=== PATIENT | female | born 1960 | race Caucasian/White ===

== ENCOUNTER 2019-11-10 16:06 | Outpatient (CLI) | payer OTHER, SELFPAY ==
--- NOTE | 2019-11-10 | ECG_ITS ---
Measurements Intervals [place] Rate: 84 P: 64 WV: 164 QRS: 16 QRSD: 95 T: 49 QT: 364 QTc: 431 Interpretive Statements SINUS RHYTHM NORMAL ECG Electronically Signed On 11-10-2019 18:57:01 DECISION SUPPORT MANAGER by Lambert Covington D.O.
== END 2019-11-10 16:07 | disposition home or self-care (01) ==
LOC: ANHIMG 16:08
PROVIDERS: PCP Family Medicine; Visit Provider Family Medicine
DX: I49.9 Cardiac arrhythmia, unspecified (principal)
CPT/HCPCS: 93005

== ENCOUNTER → 2019-11-19 09:35 | Outpatient (CLI) | payer OTHER, SELFPAY ==
--- NOTE | ~2019-11-19 | XR_ITS ---
EXAMINATION: XR lumbar spine 6V w bending DATE: 11/19/2019 10:38 INDICATION: Low back pain. TECHNIQUE: Standing anteroposterior, lateral in neutral, flexion and extension, and bilateral oblique views of the lumbar spine, and cone-down lateral view of the lumbosacral junction were obtained. COMPARISON: CT abdomen dated 11/03/2009 FINDINGS: Chronic spondylolysis with bilateral lucent pars defects at L5. 5 mm anterolisthesis of L5 on S1 valerio ins unchanged with flexion or extension. Vertebral body heights are normal. Mild disc height loss at L3-L4, L4-L5 and L5-S1. Moderate to severe facet osteoarthritis in the lower lumbar spine. Mild osteo arthritis at the bilateral sacral iliac joints. Cholecystectomy clips in the right upper quadrant. IMPRESSION: 1. Mild to moderate lower lumbar spondylosis. 2. Chronic L5 spondylolysis with bilateral pars interarticularis defects and 5 mm anterolisthesis wit h respect to S1 which is unchanged with flexion and extension. 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 ING UNIT OPERATOR CRIMPING IMPRESSION: 1. Mild to moderate lower lumbar spondylosis. 2. Chronic L5 spondylolysis with bilateral pars interarticularis defects and 5 mm anterolisthesis with respect to S1 which is unchanged with flexion and exten ana paula.
== END ==
PROVIDERS: PCP Nurse Practitioner Family; Visit Provider Nurse Practitioner Family
DX: M47.896 Other spondylosis, lumbar region (principal)
CPT/HCPCS: 72114

== ENCOUNTER → 2019-11-27 07:53 | Outpatient (CLI) | payer OTHER, SELFPAY ==
--- NOTE | ~2019-11-27 | US_ITS ---
EXAMINATION: US right upper quadrant EXAM DATE: 11/27/2019 08:19 INDICATION: Cirrhosis, follow-up. TECHNIQUE: Multiple grayscale and Doppler images of the abdomen right upper quadrant were obtained (b y a technologist who performed the scan) and subsequently reviewed. Comparison is made to prior exami nation from 05/06/2015. FINDINGS: The pancreatic head and body are normal in appearance. The pancreatic tail is not visualized. Heter ogeneous liver echogenicity with nodular contour consistent with cirrhosis. There are no focal liver lesions identified. There is no evidence of intrahepatic biliary duct dilation. Portal venous gus w was seen in the hepatopedal, normal direction and has normal Doppler waveform. No right-sided hydr onephrosis. Common bile duct measures 3 mm, which is normal. The gallbladder fossa is unremarkable. IMPRESSION: 1. Cirrhosis. Reviewed, dictated and finalized at location B. CTOR OF PHYSICIAN PRACTICES IMPRESSION: 1. Cirrhosis.
== END ==
DX: K74.69 Other cirrhosis of liver (principal)
CPT/HCPCS: 76705

== ENCOUNTER 2019-12-07 16:01 | Outpatient (CLI) | payer OTHER, SELFPAY ==
[2019-12-07 17:02] LABS: Blood Urea Nitrogen 13 mg/dL (7-17); Calcium 9.9 mg/dL (8.4-10.2); Carbon Dioxide 29 mmol/L (22-30); Chloride 98 mmol/L (98-107); Estimated Glomerular Filt Rate > 60; Glucose 124 mg/dL (65-105); Potassium 4.3 mmol/L (3.4-5.0); Sodium 135 mmol/L (137-145)
== END 2019-12-07 16:02 | disposition home or self-care (01) ==
PROVIDERS: Anesthesiology; Visit Provider Obstetrics & Gynecology
DX: N95.0 Postmenopausal bleeding (principal); T50.2X5A Adverse effect of carbonic-anhydrase inhibitors, benzothiadiazides and other diuretics, initial encounter
CPT/HCPCS: 36415; 80048; 86850; 86900; 86901

== ENCOUNTER 2019-12-10 21:06 | Inpatient (IN) | payer OTHER, SELFPAY ==
[2019-11-30 15:23] VITALS: BMI 50.3
--- NOTE | ~2019-12-10 | XR_ITS ---
EXAMINATION: XR chest 1V portable DATE: 12/12/2019 05:44 INDICATION: Respiratory failure. TECHNIQUE: A single frontal view of the chest was obtained. COMPARISON: Chest single view 12/11/2019 FINDINGS: There are airspace opacities in the lower lung zones. There are airspace opacities in left perihilar region. There is a small left pleural effusion. No pneumothorax. Cardiomegaly is noted. A r ight internal jugular central venous catheter is seen with tip in the superior vena cava. Surgical cl ips in the right upper quadrant are likely from cholecystectomy. IMPRESSION: 1. Stable airspace opacities in the lower lung zones and left perihilar region, consistent with atele ctasis versus pneumonia. 2. Stable small left pleural effusion. 3. Cardiomegaly. 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 ETISER OPERATOR IMPRESSION: 1. Stable airspace opacities in the lower lung zones and left perihilar region, consistent with atelectasis versus pneumonia. 2. Stable small left pleural effusion. 3. Cardiomegaly.
--- NOTE | ~2019-12-10 | XR_ITS ---
EXAMINATION: XR chest ET placement, XR abdomen NG/feed tube insert DATE: 12/10/2019 20:55 INDICATION: Endotracheal tube placement. Orogastric tube placement. TECHNIQUE: Line 1. Portable AP supine view of the chest was obtained for assessment of endotracheal tube placement. 2. Portable AP supine view of the abdomen was obtained to assess for nasogastric tube placement. COMPARISON: None FINDINGS: Chest: Endotracheal tube tip 2.5 cm above the guillermo. Right internal jugular central venous catheter with di stal tip at the caudal superior vena cava. Small lung volumes. Bilateral perihilar airspace opacities and more bandlike opacities in the bilateral lower lung zones. Likely small left pleural effusion. N o pneumothorax. The cardiomediastinal silhouette remains within normal limits for AP technique. Visua lized bones and soft tissues are unremarkable. Abdomen: Nasogastric tube tip in proximal side port in the body of the stomach. Cholecystectomy clips in right upper quadrant. Midline skin roya at the lower abdomen. No dilated gas-filled bowel to suggest ob struction. Moderate lower lumbar spondylosis. IMPRESSION: 1. Lines and tubes in expected positions. 2. Small lung volumes with bilateral airspace disease which could represent atelectasis and/or pneumo josue. 3. Likely small left pleural effusion. 4. Postoperative changes in the abdomen with normal bowel gas pattern. 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 ESIASTICAL WORKER IMPRESSION: 1. Lines and tubes in expected positions. 2. Small lung volumes with bilateral airspace disease which could represent ate lectasis and/or pneumonia. 3. Likely small left pleural effusion. 4. Postoperative changes in the abdomen with normal bowel gas pattern.
--- NOTE | ~2019-12-10 | XR_ITS ---
EXAMINATION: XR chest 1V portable DATE: 12/13/2019 05:50 INDICATION: Respiratory failure. TECHNIQUE: A single frontal view of the chest was obtained. COMPARISON: Chest single view 12/12/2019 FINDINGS: There are airspace opacities in the perihilar regions and lower lung zones. There is a smal l left pleural effusion. No pneumothorax. Cardiomegaly is noted. There is a right internal jugular po rt with tip in superior vena cava. IMPRESSION: 1. Airspace opacities in the perihilar regions and lower lung zones with worsening on the right, cons istent with atelectasis versus pneumonia. 2. Stable small left pleural effusion. 3. Cardiomegaly. 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 PING TECHNICIAN IMPRESSION: 1. Airspace opacities in the perihilar regions and lower lung zones with worsen ing on the right, consistent with atelectasis versus pneumonia. 2. Stable small left pleural effusion. 3. Cardiomegaly.
--- NOTE | ~2019-12-10 | XR_ITS ---
EXAMINATION: XR chest 1V portable DATE: 12/11/2019 05:47 INDICATION: Respiratory failure. TECHNIQUE: A single frontal view of the chest was obtained. COMPARISON: Chest single view 12/10/2019 FINDINGS: There is mild atelectasis in the lower lung zones. There is a small left pleural effusion. No pneumothorax. Cardiomegaly is noted. A right internal jugular central venous catheter is seen with tip in the superior vena cava. The nasogastric tube tip is in the stomach. The endotracheal tube tip is 2.7 cm above the guillermo. IMPRESSION: 1. Mild atelectasis in the lower lung zones. 2. Small left pleural effusion. 3. Cardiomegaly. 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 ONOMY DEPARTMENT CHAIR
--- NOTE | 2019-12-10 08:55 | WPDANESEPPF ---
Anes - Initial Pre Proc Eval Procedure: Operation Date: 12/10/19 13:00 Proposed Procedures p Robotic Assisted Total Vaginal Hysterectomy, Bilateral Salpingectomy - Mariano James MD Date/Time: 12/10/19 08:55 Surgeon: Mariano James MD Pre Op Diagnosis: Persistent post menopausal bleeding Patient Data Age: 59 Gender: F Height: 1.6 m Weight: 128.82 kg Allergies Allergy/AdvReac Type Severity Reaction Status Date / Time Penicillins Allergy Intermediate Rash Verified 11/30/19 15:15 Sulfa (Sulfonamide Allergy Unknown Dermatitis, Verified 11/30/19 15:15 Antibiotics) RASH TANGERINES Allergy Severe THROAT Uncoded 11/30/19 15:15 SWELLING Home Medications Medication Instructions Recorded Confirmed Type azathioprine 50 mg PO DAILY 09/08/19 11/30/19 History furosemide 20 mg PO BID 09/08/19 11/30/19 History nadolol 20 mg PO HS 09/08/19 11/30/19 History pantoprazole 40 mg PO DAILY 09/08/19 11/30/19 History spironolactone 150 mg PO DAILY 09/08/19 11/30/19 History cholecalciferol (vitamin D3) 50 2,000 unit PO DAILY 11/10/19 11/30/19 History mcg (2,000 unit) tablet fluticasone propionate 50 1 spray NASAL BID #15.8 ml 11/10/19 11/30/19 Rx mcg/actuation nasal spray,suspension cyclobenzaprine 10 mg PO PRN PRN 11/30/19 11/30/19 History hydrocodone-acetaminophen 1 tablet PO PRN PRN 11/30/19 11/30/19 History lactulose 15 ml PO HS 11/30/19 11/30/19 History tramadol 50 mg PO PRN PRN 11/30/19 11/30/19 History ECG: Date of Service: 11/10/19 Procedure(s): CA 12 lead EKG Accession Number(s): [id number] cc: ~ Measurements Intervals [place] Rate: 84 P: 64 IN: 164 QRS: 16 QRSD: 95 T: 49 QT: 364 QTc: 431 Interpretive Statements SINUS RHYTHM NORMAL ECG Electronically Signed On 11-10-2019 18:57:01 INVESTIGATIONS MANAGER by Lambert Covington D.O. 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 Morbid obesity with BMI of 50.0-59.9, adult Obstructive sleep apnea Osteopenia after menopause Portal hypertension Surgical History Surgical History (Updated 11/10/19 @ 13:26 by Radha Mcneal MA) H/O dilation and curettage (~2019) History of breast lump/mass excision Hx of cholecystectomy Social History Social History Smoking status: Never smoker Alcohol intake: current Gender identity (if verbalized by the patient): Female Anes - Eval Final PreProcedure Day of Procedure 12/10/19 08:55 Patient weight: morbidly obese Heart: regular rate and rhythm Lungs: clear to auscultation and normal air movement Airway: Mallampati scale class II Neurological: alert and oriented Last oral intake: >/= 8 hours ASA classification: IV Emergent: no Anesthetic plan: proceed Anesthesia type and monitoring: general ETT Informed Consent: The patient's anesthetic plan and its attendant risks and benefits were discussed with the patient/family/POA. Questions were solicited and answers provided to the satisfaction of the patient/family/POA.
[2019-12-10] MEDS: LACTATED RINGERS 1,000 ML 30 ML IV CONT (11:15)
[2019-12-10 11:37] VITALS: BP 131/96; PULSE 85; RESP 18; TEMP 36.6; O2SAT 98
--- NOTE | 2019-12-10 12:34 | PM.IMHP ---
H&P: HPI History of Present Illness Chief complaint: Persistent post menopausal bleeding Narrative: 59 y/o who continues to have irregular vaginal bleeding. She had a D&C in September which demonstrated atrophic endometrium. Her Pap was negative. She is asking for definitive management. 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 Past MONUMENT STONECUTTER: No history of abnormal pap or of STI. Meds Home Medications and Allergies Home Medications Medication Instructions Recorded Confirmed Type azathioprine 50 mg PO DAILY 09/08/19 12/10/19 History furosemide 20 mg PO BID 09/08/19 12/10/19 History nadolol 20 mg PO HS 09/08/19 12/10/19 History pantoprazole 40 mg PO DAILY 09/08/19 11/30/19 History spironolactone 150 mg PO DAILY 09/08/19 12/10/19 History cholecalciferol (vitamin D3) 50 2,000 unit PO DAILY 11/10/19 12/10/19 History mcg (2,000 unit) tablet fluticasone propionate 50 1 spray NASAL BID #15.8 ml 11/10/19 12/10/19 Rx mcg/actuation nasal spray,suspension cyclobenzaprine 10 mg PO PRN PRN 11/30/19 12/10/19 History hydrocodone-acetaminophen 1 tablet PO PRN PRN 11/30/19 12/10/19 History lactulose 15 ml PO HS 11/30/19 12/10/19 History tramadol 50 mg PO PRN PRN 11/30/19 12/10/19 History Allergies Allergy/AdvReac Type Severity Reaction Status Date / Time Penicillins Allergy Intermediate Rash Verified 12/10/19 11:32 Sulfa (Sulfonamide Allergy Unknown Dermatitis, Verified 12/10/19 11:32 Antibiotics) RASH TANGERINES Allergy Severe THROAT Uncoded 12/10/19 11:32 SWELLING Vital Signs Vital Signs - 24 hr 12/10/19 11:37 Temperature 36.6 C Pulse Rate 85 Respiratory Rate 18 Blood Pressure 131/96 H Pulse Oximetry 98 Exam Const: Orientation/consciousness: patient oriented x3 Other: Well-developed, well-nourished female in no acute distress. Neck: Thyroid: thyroid normal Lymphatic: no lymphadenopathy noted (in neck, axilla or inguinal nodes) Resp: Effort & Inspection: normal respiratory effort Auscultation: clear to auscultation bilaterally Cardio: Rate: regular rate Rhythm: regular rhythm Heart sounds: S1 normal heart sound present and S2 normal heart sound present GI: Other: ABD: Soft, nontender, nondistended. No guarding or rebound tenderness. No hepatosplenomegaly. : General: Yes no CVA tenderness Other: External genitalia: normal female hair distribution, without lesion. Urethral meatus: no lesion, non prolapsed. Bladder: no mass, nontender Vagina: atrophic, without lesion or discharge. No cystocele or rectocele. Cervix: no lesion or discharge. Uterus: small, anteverted, freely mobile, nontender Adnexa: no mass or tenderness. Anus/perineum: no lesions, nontender Back/Spine/Pelvis: Back: no CVA tenderness Skin: General skin exam: normal color and no rashes or lesions noted Neuro: General: patient oriented x3 Extrem: Other: Extremities: nontender with no edema Psych: Mental Status: mental status grossly normal Affect: normal affect Assessment and Plan Assessment a
[2019-12-10] MEDS: CLINDAMYCIN 900 MG/NS 50 ML 900 MG/50 ML PIGGYBACK 50 MG IVPB ×2 (13:06→16:32)
[2019-12-10] MEDS: IBUPROFEN IV 800 MG/200 ML 800 MG/200 ML BAG 400 MG IVPB (13:20)
--- NOTE | 2019-12-10 15:01 | PM.PROC ---
Procedure Note - Detailed Date of procedure: 12/10/19 Pre-op diagnosis: Persistent post menopausal bleeding Post-op diagnosis: same Procedure performed: Robotic assisted TVHBSO Description of procedure: The patient was taken to the operating room where general endotracheal anesthesia was administered. She was prepared and draped in the usual sterile fashion in the dorsal lithotomy position. The bladder was drained with Moreno catheter. The cervix was visualized and the anterior lip was grasped using a single-tooth tenaculum. The cervix was gently dilated using Hegar dilators. The ORION 2 uterine manipulator was then placed and the tenaculum was removed. Gloves were changed and attention was turned to the abdomen. A supraumbilical skin incision was made with the scalpel. The Veress needle was advanced and pneumoperitoneum was administered using carbon dioxide gas. The bladeless trocar was then advanced. Intraperitoneal placement was confirmed using the laparoscope. Lateral ports and an entry level assistant manager port were all placed using bladeless trocars under direct laparoscopic visualization. She was placed in Trendelenburg position and the patient cart was docked. I assumed the console. The ureters were visualized bilaterally. The round ligament on the right was divided. The infundibulopelvic ligament was divided. The broad ligament was divided, skeletonizing the uterine artery on the right. The bladder was reflected away. The left side was similarly dissected. Colpotomy was performed circumferentially. The specimen was removed and passed off to be sent to pathology. The vaginal cuff was reapproximated using 0 Vicryl in interrupted [id number] fashion. The pelvis was irrigated copiously using warmed normal saline. Rigorous hemostasis was assured. HemaDerm was applied to the vaginal cuff. The pedicles were inspected once again. The ports were then withdrawn and the gas was allowed to escape. The skin incisions were reapproximated using 4 0 Monocryl in interrupted subcuticular fashion. Dermaflex was applied externally. Sponge, lap, needle and instrument counts were correct. The patient was awakened and taken to the recovery room in stable condition. I was present and scrubbed through the entire procedure. Implants: None Anesthesia: JAIDEN Surgeon: Mariano James MD Estimated blood loss (mL): 50 Drains: Yes (moreno) Packing: No Pathology: yes (Uterus, cervix, bilateral ovaries and tubes) Complications: None Condition: stable Disposition: PACU Findings: Liver appears nodular with some omental adhesions to the anterior abdominal wall near the liver. The uterus, tubes and ovaries, anterior and posterior cul-de-sac, bilateral uterosacral and round ligaments were all unremarkable.
--- NOTE | 2019-12-10 15:10 | PM.DS ---
DS: Diagnosis Admitting Diagnosis Admitting Diagnosis: Postmenopausal bleeding DS: Summary Time Spent with Patient Time attestation: Total time spent providing and/or coordinating discharge services: DS: Data Data Completed and Pending Pending studies at discharge: Pending at discharge 12/10/19 14:37 Surgical [PTH] Routine Discharge Plan Discharge Patient Disposition: Home, Self-Care Discharge Instructions: Call or return if temperature above 100.4? F, increased abdominal pain, increased vaginal bleeding or any new problems. Stand Alone Forms: General Discharge Instructions Follow-up/Referrals: Mariano James MD [Physician] - (2 weeks) Discharge Medications: No Action cholecalciferol (vitamin D3) [Vitamin D3] 2,000 unit tablet 2,000 unit PO DAILY RF: 0 fluticasone propionate [Flonase Allergy Relief] 50 mcg/actuation spray,suspension 1 spray NASAL BID Qty: 15.8 RF: 0 lactulose 10 gram/15 mL solution 15 ml PO HS RF: 0 hydrocodone-acetaminophen 5-325 mg tablet 1 tablet PO PRN PRN (Reason: Pain) RF: 0 tramadol 50 mg tablet 50 mg PO PRN PRN (Reason: pain) RF: 0 cyclobenzaprine 10 mg tablet 10 mg PO PRN PRN (Reason: Muscle Spasm) RF: 0 azathioprine 50 mg tablet 50 mg PO DAILY RF: 0 nadolol 20 mg tablet 20 mg PO HS RF: 0 pantoprazole 40 mg tablet,delayed release (DR/EC) 40 mg PO DAILY RF: 0 furosemide 20 mg tablet 20 mg PO BID RF: 0 spironolactone 50 mg tablet 150 mg PO DAILY RF: 0 Primary Care Provider: Zoran Nix Attending physician on admission: Mariano James
[2019-12-10 16:10] LABS: Base Excess ABG -10.5 mEq/l (+/-2.0); Carboxyhemoglobin 0.2 % THb (0-2.0); Fractional Inspired Oxygen 21 %; HCO3 ABG 18.2 mEq/l (22.0-26.0); Methemoglobin ABG 0.8 %THb (0-1.5); Oxygen Content ABG 11.7 %vol (16.0-22.0); Oxygen Saturation ABG 98.2 % (95.0-100.0); Oxyhemoglobin 95.9 % THb (90.0-100.0); PCO2 ABG 55.6 mmHg (35.0-45.0); PO2 ABG 150.5 mmHg (80.0-100.0); Reduced Hemoglobin 3.1 %THb (0-5.0); Total Hemoglobin 8.4 g/dL (12.0-18.0)
[2019-12-10 16:12] LABS: Device SIMPLE MASK; Site Drawn ARTLINE; pH ABG 7.132 (7.350-7.450)
[2019-12-10 16:13] LABS: Hematocrit 23.1 % (37.0-47.0); Hemoglobin 7.4 g/dL (12.0-15.0)
[2019-12-10 17:19] LABS: Hematocrit 21.9 % (37.0-47.0); Hemoglobin 7.3 g/dL (12.0-15.0)
[2019-12-10 17:27] LABS: Alveolar/Arterial O2 Gradient 446.2 mmHg; Base Excess ABG -11.3 mEq/l (+/-2.0); Carboxyhemoglobin 0.2 % THb (0-2.0); Fractional Inspired Oxygen 100 %; HCO3 ABG 15.5 mEq/l (22.0-26.0); Methemoglobin ABG 0.5 %THb (0-1.5); Oxygen Content ABG 11.7 %vol (16.0-22.0); Oxygen Saturation ABG 99.3 % (95.0-100.0); Oxyhemoglobin 97.2 % THb (90.0-100.0); PCO2 ABG 39.1 mmHg (35.0-45.0); PO2 ABG 227.7 mmHg (80.0-100.0); PO2 FiO2 Ratio Arterial Blood 2.28 %; Reduced Hemoglobin 2.1 %THb (0-5.0); Total Hemoglobin 8.1 g/dL (12.0-18.0)
[2019-12-10 17:29] LABS: Site Drawn ARTLINE; pH ABG 7.217 (7.350-7.450)
[2019-12-10 17:30] LABS: Device IN OR/PER ANESTHESIA
[2019-12-10 17:31] LABS: INR 2.9; Prothrombin Time 29.5 Seconds (11.1-14.7)
[2019-12-10 17:33] LABS: Partial Thromboplastin Time 71.6 SECONDS (22.3-36.8)
--- NOTE | 2019-12-10 18:42 | SUR.OPER ---
ADDITIONAL COUNTS AT END OF SECOND PROCEDURE DONE BY TIM WHYTE AND JOSE TAN RN, ALL COUNTS COMPLETE AND CORRECT:432
[2019-12-10 19:08] LABS: Base Excess ABG -10.5 mEq/l (+/-2.0); Carboxyhemoglobin 0.3 % THb (0-2.0); Fractional Inspired Oxygen 100 %; HCO3 ABG 16.8 mEq/l (22.0-26.0); Methemoglobin ABG 0.5 %THb (0-1.5); Oxygen Content ABG 17.4 %vol (16.0-22.0); Oxygen Saturation ABG 99.7 % (95.0-100.0); Oxyhemoglobin 97.8 % THb (90.0-100.0); PCO2 ABG 42.7 mmHg (35.0-45.0); PO2 ABG 347.3 mmHg (80.0-100.0); PO2 FiO2 Ratio Arterial Blood 3.47 %; Reduced Hemoglobin 1.4 %THb (0-5.0)
[2019-12-10 19:10] LABS: pH ABG 7.213 (7.350-7.450)
[2019-12-10 19:11] LABS: Site Drawn ARTLINE
[2019-12-10 19:12] LABS: Device IN OR/PER ANESTHESIA
--- NOTE | 2019-12-10 19:17 | SUR.OPER ---
final count for second procedure: all sponges, sharps and instruments correct per MANASA MILES RN AND JOSE TAN RN
--- NOTE | 2019-12-10 19:28 | SUR.OPER ---
EBL:[id number], URINE:120CC
--- NOTE | 2019-12-10 19:29 | SUR.OPER ---
URINE CORRECTION:155CC
--- NOTE | 2019-12-10 19:29 | SUR.OPER ---
GIVEN DURING SURGERY: 4 UNITS FFP, 6 UNITS PACKED CELLS
--- NOTE | 2019-12-10 19:33 | PM.PROC ---
Procedure Note - Detailed Date of procedure: 12/21/19 Pre-op diagnosis: Persistent post menopausal bleeding This is an intraoperative consultation note by Dr. Sana Parsons. Preop as above Post-op diagnosis: other ( intraoperative bleeding starting has the robotic/ laparoscopic trocars were removed.) Procedure performed: Exploratory laparotomy with control of hemorrhage Description of procedure: I received a call as the on-call general surgeon to help in room 10. Dr. James explained that he had just completed a robotic total abdominal hysterectomy with bilateral salpingo-oopherectomy. He states that there was no obvious bleeding during or at the end of the case. A then as they began removing the laparoscopic trocars upon removal of the upper midline laparoscopic trocar there was some bubbling of some dark blood. 5 minutes later as they were continuing to complete closure the patient began dropping her blood pressure and increasing her heart rate. Therefore, prior to me entering the room Dr. James had made a vertical midline incision from the pubic bone up to 3 cm below the umbilicus. They began a laparotomy and had searched for bleeding. He had inspected both of the pedicles for the ovarian vessels prior to my arrival. They also had somewhat inspected the vaginal cuff and there was not obvious bleeding. They had seen dark blood coming down both gutters into the pelvis. Because the patient could not tolerate it they stated that they did not have her in super steep Trendelenburg during the procedure. Upon scrubbing in I carefully inspected the incision and helped them move the bowels back and forth and we looked in the pelvis again. We scooped out several areas of blood clot. I made an initial of palpation of the right upper quadrant and there was adhesions of the omentum to the underside of abdominal wall that I took down with Bovie cautery so that I could get my hand up by the Rt. lobe of the liver. The liver was small and nodular but there were no defects or palpable lacerations in the liver. I did the same thing on the left side and we brought some blood clots down but I could not get my hand up lateral to the stomach we could see the anterior surface of the stomach and it appeared to be okay. Since we were not finding anything that would explain the bleeding and we are having difficulty keeping the bowels out of the way we decided to enlarge the incision. I helped to make the incision larger by continuing the incision around the left side of the umbilicus and up through the port site that was transverse just above the umbilicus and then another 3 cm above that. We opened the fascia the length of this. Following this I was able to get a retractor in we suctioned all the blood from along the right lateral gutter and along the liver and I placed 1 lap pad up lateral to the liver and left that in place. We then moved to the left side and I went all the way up to the adhesions and placed another lap pad on top of the colon and the omentum in the left upper quadrant. Then we placed the patient in Trendelenburg position and re-examine the pelvis. Please see Dr. James's a dictation regarding the pelvis. It appeared that patient was oozing from both pedicles so several sutures were placed mainly on the right pedicle which stopped bleeding. There was not arterial bleeding that we could see. We also had some bleeding from the right side of the vaginal cuff and he suture ligated this. When we were satisfied with no bleeding at the vaginal cuff a piece of Gelfoam was placed on the vaginal cuff deep in the pelvis. We then carefully reinspected the right ovarian pedicle and did not see any significant bleeding. We then left the patient sit for 2 minutes and observed her vitals.. While we had been working the Anesthesiologist had placed a left jugular central line and given the patient 4 units of pack red blood cells and 4 units of FFP. Her INR which
--- NOTE | 2019-12-10 20:01 | P.OP_ITS ---
Procedure Note - Detailed Date of procedure: 12/10/19 Pre-op diagnosis: Persistent post menopausal bleeding Postoperative bleeding Post-op diagnosis: same Procedure performed: Diagnostic laparoscopy Conversion to laparotomy Description of procedure: After the patient's hysterectomy, she was extubated. She then became hypotensive. I was called emergently back to the operating room at this time to evaluate her. We decided to go ahead with diagnostic laparoscopy in an attempt to find a reason for her hypotension. She was prepared and draped in usual sterile fashion in the dorsal supine position. The supraumbilical skin incision was reopened and the 5 mm bladeless trocar was advanced under direct laparoscopic visualization. Pneumoperitoneum was administered. A second 5 mm port was placed in the right lateral port site, again with a bladeless trocar under direct laparoscopic visualization. Hemoperitoneum was noted and adequate visualization was not able to be obtained. She received a second dose of antibiotic, and we proceeded to open laparotomy. A vertical skin incision was made with the scalpel and carried through to the underlying layer of the fascia. The fascia was incised in the midline. The incision was extended superiorly and inferiorly. The peritoneum was tented and entered sharply. This incision was extended superiorly inferiorly. The self- retaining retractor was placed and the bowel was packed away in an effort to visualize the vaginal cuff and pedicles. Hemoperitoneum was evacuated. Bleeding seemed to be coming from higher in the abdomen, so general surgery was consulted. Oozing at the vaginal cuff and at the ovarian pedicles was addressed with interrupted figure of eight sutures of 0-Vicryl. Gelfoam was placed at the vaginal cuff and at the left ovarian pedicle for additional hemostasis. The likely main bleeder was identified as a large vein in the anterior abdominal wall adjacent to the supraumbilical port site. Please see Dr. Parsons's separate note for further details. She received 6 units of PRBC and 6 units of FFP. After the vertical skin incision was closed, the patient remained intubated and was taken to the ICU. Implants: None Anesthesia: GETA Surgeon: Mariano James MD Estimated blood loss (mL): 3,000 Drains: Yes (moreno) Packing: No Pathology: none sent Complications: No immediate complications Condition: stable Disposition: ICU Findings: Hemoperitoneum. Source of bleeding appeared to be the large anterior abdominal wall vein adjacent to the supraumbilical port site. Small oozing from many peritoneal surfaces, including at the vaginal cuff and pedicle sites bilaterally.
[2019-12-10 20:08] VITALS: PULSE 91; O2SAT 100
--- NOTE | 2019-12-10 20:13 | WPDANESCVCPN ---
Anes - Cent Venous Cath Note Consent: It was necessary to proceed with central venous catheter insertion as an important element of the patient's clinical management given emergent patient conditions, temporal constraints may have precluded informed consent. Time-Out: A pre-procedural Time-Out was completed immediately before starting the procedure and confirmed: Patient Identification, Site, Procedure, Patient Position and the Availability of Requisite Equipment. Procedure Note Clinical Indications: hypovolemic shock Patient position: trendelenburg Central venous catheter insertion site: right internal jugular CVC method of insertion: surface landmarks Hand hygiene/Aseptic technique: Hand hygiene procedures were performed. Aseptic technique was maintained throughout the procedure. Sterile barrier precautions: Maximal sterile barrier precautions, including use of a cap, mask, sterile gown, sterile gloves and a sterile full body drape. Site prep: chlorhexidine Skin anesthesia: placed under general anesthesia Latvian: 7 Lumen: 3 Length (cm): 15 cm Depth of insertion (cm): 15 Closure/Dressing: suture, biopatch and tegaderm Complications: None immediately noted/suspected. Chest X Ray: Ordered by icu to follow Procedure comments: placed by DFW without difficulty in operating room. transduced cvp waveform. 1730 [id number].
[2019-12-10 20:27] VITALS: PULSE 93
[2019-12-10 21:08] LABS: Hematocrit 25.8 % (37.0-47.0); Hemoglobin 8.7 g/dL (12.0-15.0); Immature Platelet Fraction Pct 3.4 % (0.9-11.2); Mean Corpuscular HGB Conc 33.7 g/dl (32-36); Mean Corpuscular Hemoglobin 29.9 pg (26-34); Mean Corpuscular Volume 88.7 fl (80-100); Mean Platelet Volume 10.6 fl (7.4-10.4); Platelet Count Result 40 k/mm3 (150-375); Red Blood Count 2.91 M/mm3 (4.2-5.4); Red Cell Distribution Width 15.2 % (11.5-14.5)
[2019-12-10 21:16] LABS: INR 1.3
[2019-12-10 21:17] LABS: Partial Thromboplastin Time 30.4 SECONDS (22.3-36.8)
[2019-12-10 21:19] LABS: Blood Urea Nitrogen 12 mg/dL (7-17); Calcium 8.6 mg/dL (8.4-10.2); Carbon Dioxide 25 mmol/L (22-30); Chloride 101 mmol/L (98-107); Estimated CRCL calculation 77 ml/min; Estimated Glomerular Filt Rate > 60; Glucose 179 mg/dL (65-105); Magnesium 1.3 mg/dL (1.6-2.3); Potassium 4.2 mmol/L (3.4-5.0); Sodium 138 mmol/L (137-145)
[2019-12-10 21:21] LABS: Lactic Acid 4.4 mmol/L (0.7-2.1)
[2019-12-10 21:24] VITALS: TEMP 35.6
[2019-12-10 21:36] LABS: Alveolar/Arterial O2 Gradient 127.8 mmHg; Arterial Blood Gas Ventilator rate 18 /MIN; Carboxyhemoglobin 0.2 % THb (0-2.0); Device VENTILATOR; Fractional Inspired Oxygen 40 %; HCO3 ABG 22.4 mEq/l (22.0-26.0); Methemoglobin ABG 0.5 %THb (0-1.5); Oxygen Content ABG 13.4 %vol (16.0-22.0); Oxygen Saturation ABG 98.6 % (95.0-100.0); Oxyhemoglobin 96.5 % THb (90.0-100.0); PCO2 ABG 32.2 mmHg (35.0-45.0); PO2 ABG 120.4 mmHg (80.0-100.0); PO2 FiO2 Ratio Arterial Blood 3.01 %; Reduced Hemoglobin 2.8 %THb (0-5.0); Site Drawn ARTLINE; Total Hemoglobin 9.7 g/dL (12.0-18.0)
[2019-12-10 21:37] LABS: Arterial Blood Gas PEEP 5 cmH2O; Arterial Blood Gas Tidal Volume 400 ml; Arterial Blood Gas Vent Mode CMV
[2019-12-10] MEDS: AZTREONAM 1 GM in DEXTROSE 5% IN WATER 50 ML IVPB (21:54)
[2019-12-10 22:00] VITALS: BP 102/55; PULSE 94; RESP 18; TEMP 35.8; O2SAT 94
--- NOTE | 2019-12-10 22:19 | PM.IMCN ---
Assessment and Plan Assessment and plan (1) Respiratory acidosis: Code(s): E87.2 - Acidosis Status: Acute Assessment and Plan: Patient is intubated and placed on a ventilator. Drafting Technician to manage ventilator settings. Her ABGs have improved. The patient is more awake now. The patient also had lactic acidosis as well. Patient could have been in hypovolemic shock. Could also be early sepsis. (2) Postoperative hemorrhage: Status: Acute Assessment and Plan: Management per Dr. goetz. According to his note the patient had 6 units of packed red blood cells and 6 units of FFP. I am going to monitor her H&H closely every 6 hours. The patient is in the intensive care unit. Transfuse as needed. Vasopressors as needed. Latest H&H is [phone]. (3) Advanced cirrhosis of liver: Code(s): K74.60 - Unspecified cirrhosis of liver Status: Acute Assessment and Plan: Patient's lactulose, Aldactone and Lasix are on hold at this time. (4) Obstructive sleep apnea: Code(s): G47.33 - Obstructive sleep apnea (adult) (pediatric) Status: Chronic Assessment and Plan: Patient is currently vented bit may need a CPAP when she comes off the vent. (5) HTN (hypertension), malignant: Code(s): I10 - Essential (primary) hypertension Status: Acute Assessment and Plan: Home medications are on hold at this time due to patient's low blood pressure from earlier. (6) H/O: hysterectomy: Code(s): Z90.710 - Acquired absence of both cervix and uterus Status: Acute Assessment and Plan: Postop care per Dr. Goetz. (7) Low magnesium level: Code(s): R79.0 - Abnormal level of blood mineral Status: Acute Assessment and Plan: Replace as needed. The magnesium was replaced. HPI Data of Consult Consult date: 12/10/19 Requesting Physician: Mariano Goetz MD Primary Care Provider: Zoran Nix MD Consult Narrative Narrative: Hetal Curry is a 59 year old female who has a history of postmenopausal bleeding. The patient had a D&C previously on 09/16/[address] Goetz. It looks like she had a hysteroscope and had a removal of endometrial mass. Patient continued to have persistent postmenopausal bleeding. The patient has a history of of non alcoholic cirrhosis of the liver. Today the patient was taken for robotic assisted TVH BSO per Dr. Goetz. Patient developed some intraoperative bleeding and had a exploratory laparotomy with control of hemorrhage. See Dr. Parsons's notes. The patient was apparently oozing from both pedicles and several sutures were placed. The patient received a central line in the operating room and the patient was given 6 units of packed red blood cells and 6 units of FFP. Her INR was 2.9. Once the patient was stabilized she was moved to the intensive care unit. The patient was placed on the ventilator and on vasopressors. Patient was awake and had her eyes open when she entered ICU. I was asked to consult on the case for the hospitalist group. Date of service 12/10/2019 Review of Systems Review of Systems: Narrative: Unable to obtain information from the patient as she is intubated and placed on ventilator. The family was giving history and the patient brought her medications with her to the hospital. ROS unobtainable: unobtainable due to endotracheal tube Constitutional: Constitutional: Reports as per HPI and Reports no additional constitutional complaints Eyes: Eyes: Reports as per HPI and Reports no additional eye complaints ENT: Reports system reviewed and no additional complaints, except as documented and Reports Normal hearing present Cardiovascular: Cardiovascular: Reports no additional cardiovascular complaints Respiratory: Respiratory: Reports no additional respiratory complaints and Reports no additional respiratory complaints Gastrointestinal: Gastrointestinal: Reports as per HPI and Repor
[2019-12-10 22:59] VITALS: PULSE 96; O2SAT 100
[2019-12-10] MEDS: SODIUM CHLORIDE 0.9% IV 1,000 ML 75 ML IV CONT (23:01)
[2019-12-10] MEDS: MAGNESIUM SULF 2 GM/WATER 50ML 2 GM/50 ML BAG IVPB (23:07)
[2019-12-10] MEDS: PHYTONADIONE INJ 10 MG/ML AMP IM (23:10)
[2019-12-10 23:18] LABS: Hematocrit 25.9 % (37.0-47.0); Hemoglobin 8.9 g/dL (12.0-15.0)
[2019-12-11] VITALS (26 sets, daily range): BP systolic 81–115; BP diastolic 46–76; PULSE 75–111; RESP 14–20; TEMP 36.2–37.8; O2SAT 89–100; BMI 51.5; BMI 54.3
[2019-12-11 00:11] LABS: Glucose Point of Care 158 (65-105)
[2019-12-11] MEDS: metroNIDAZOLE 500 MG/ISO 100ML 500 MG/100 ML BAG 100 MG IVPB ×5 (00:51→23:45)
[2019-12-11] MEDS: NOREPINEPHRINE 8 MG/D5W 250 ML 8 MG/250 ML BAG 9.4 MG IV CONT (01:08)
--- NOTE | 2019-12-11 01:22 | PC.NURSE ---
This patient, Hetal Curry, was admitted to Intensive Care Unit-6. Patient/family oriented to hospital policies and general routines including ID bracelet, bed and alarms, visiting hours, pain management, procedures, bathroom and other care routines, personal items, smoking policy, room service/diet, and visiting hours. Valuables list has been completed. Information on how to activate the Rapid Response Team has been discussed. Patient/Family are encouraged to report perceived risks to care and to ask questions if they do not understand what they are told or what they should do.
[2019-12-11 04:37] LABS: Hematocrit 26.2 % (37.0-47.0); Hemoglobin 9.3 g/dL (12.0-15.0); Immature Platelet Fraction Pct 5.2 % (0.9-11.2); Mean Corpuscular HGB Conc 35.5 g/dl (32-36); Mean Corpuscular Hemoglobin 30.4 pg (26-34); Mean Corpuscular Volume 85.6 fl (80-100); Mean Platelet Volume 11.3 fl (7.4-10.4); Platelet Count Result 56 k/mm3 (150-375); Red Blood Count 3.06 M/mm3 (4.2-5.4); Red Cell Distribution Width 15.8 % (11.5-14.5); White Blood Count 11.3 K/mm3 (4.5-10.0)
[2019-12-11 04:51] LABS: INR 1.3; Prothrombin Time 15.6 Seconds (11.1-14.7)
[2019-12-11 04:52] LABS: Partial Thromboplastin Time 28.1 SECONDS (22.3-36.8)
[2019-12-11 04:53] LABS: Ammonia < 9 umol/L (9-30); Lactic Acid 1.9 mmol/L (0.7-2.1)
[2019-12-11 04:54] LABS: Alanine Aminotransferase 108 U/L (4-35); Albumin Level 2.1 g/dL (3.5-5.1); Alkaline Phosphatase 63 U/L (38-126); Aspartate Amino Transferase 229 U/L (14-36); Bilirubin,Total 3.7 mg/dL (0.2-1.3); Blood Urea Nitrogen 17 mg/dL (7-17); Calcium 8.5 mg/dL (8.4-10.2); Carbon Dioxide 26 mmol/L (22-30); Chloride 105 mmol/L (98-107); Estimated CRCL calculation 71 ml/min; Estimated Glomerular Filt Rate 57; Glucose 146 mg/dL (65-105); Magnesium 1.7 mg/dL (1.6-2.3); Phosphorus 3.2 mg/dL (2.5-4.5); Potassium 3.9 mmol/L (3.4-5.0); Sodium 137 mmol/L (137-145)
[2019-12-11 05:53] LABS: Alveolar/Arterial O2 Gradient 93.2 mmHg; Base Excess ABG 1.2 mEq/l (+/-2.0); Carboxyhemoglobin 0.3 % THb (0-2.0); Fractional Inspired Oxygen 30 %; HCO3 ABG 24.9 mEq/l (22.0-26.0); Methemoglobin ABG 0.4 %THb (0-1.5); Oxygen Content ABG 13.6 %vol (16.0-22.0); Oxygen Saturation ABG 96.2 % (95.0-100.0); Oxyhemoglobin 94.3 % THb (90.0-100.0); PO2 ABG 78.4 mmHg (80.0-100.0); PO2 FiO2 Ratio Arterial Blood 2.61 %; Total Hemoglobin 10.2 g/dL (12.0-18.0); pH ABG 7.458 (7.350-7.450)
[2019-12-11 05:55] LABS: Device VENTILATOR; Modified Allen's Test Pass; Site Drawn RIGHT RADIAL
[2019-12-11 05:56] LABS: Arterial Blood Gas PEEP 5 cmH2O; Arterial Blood Gas Tidal Volume 360 ml; Arterial Blood Gas Vent Mode CMV; Arterial Blood Gas Ventilator rate 18 /MIN
[2019-12-11] MEDS: AZTREONAM 1 GM in DEXTROSE 5% IN WATER 50 ML IVPB ×3 (06:44→22:33)
--- NOTE | 2019-12-11 07:19 | WPDANESACPN ---
Arterial Cath Proc Note Consent: I placed an emergent a-line in the OR [id number] while patient was being treated and evaluated for post-op hypotension. Time-Out: A pre-procedural Time-Out was completed immediately before starting the procedure and confirmed: Patient Identification, Site, Procedure, Patient Position and the Availability of Requisite Equipment. Procedure Note Patient position: supine Insertion site: left radial Method of insertion: surface landmarks Concrete Stone Finisher prep: sterile gloves, mask and hat Site prep: chlorahexadine Gauge: 20 gauge Length (cm): 12 cm Closure/Dressing: antimicrobial disc and tegaderm Complications: None immediately noted/suspected.
--- NOTE | 2019-12-11 07:25 | WPDCNINT ---
Assessment and Plan Assessment and plan (1) Acute respiratory failure following trauma and surgery: Code(s): J95.821 - Acute postprocedural respiratory failure Status: Acute Assessment and Plan: Acute Respiratory failure secondary to anesthesia, hypotension and Hemorrhage Continue full mechanical ventilation support to prevent hypoxemia/hypercarbia and end organ damage. ABG and PCXR reviewed Low tidal volume ventilation strategy to prevent volutrauma tidal volume decreased to 360 Will attempt SBT today and extubate if successful. Bronchodilators (2) Shock: Code(s): R57.9 - Shock, unspecified Status: Acute Assessment and Plan: multifactorial shock from hemorrhagic volume loss, anesthesia and caution with sepsis patient on empiric broad-spectrum antibiotic with aztreonam and Flagyl patient is 4-5 L positive sense will be cautious with IV fluids as patient has cirrhosis and is third-spacing start albumin 25% on low-dose Levophed will continue to titrate and wean if possible. Transfuse blood products as needed (3) Postoperative hemorrhage: Status: Acute Assessment and Plan: patient had 6 units of packed red blood cells and 6 units of FFP. hemoglobin appears to be stable this morning . Continue to monitor closely. Transfuse as needed. (4) DIC (disseminated intravascular coagulation): Code(s): D65 - Disseminated intravascular coagulation [defibrination syndrome] Status: Acute Assessment and Plan: patient was given 6 units of FFP and later 10 mg of vitamin K in the ICU INR acceptable this morning at 1.3. Monitor closely transfuse as needed. Check fibrinogen level (5) S/P exploratory laparotomy: Code(s): Z98.890 - Other specified postprocedural states Status: Acute Assessment and Plan: pain control and surgical wound care (6) H/O: hysterectomy: Code(s): Z90.710 - Acquired absence of both cervix and uterus Status: Acute Assessment and Plan: Postop care per Dr. James. (7) Advanced cirrhosis of liver: Code(s): K74.60 - Unspecified cirrhosis of liver Status: Acute Assessment and Plan: Patient's lactulose, Aldactone and Lasix are on hold at this time. ammonia was checked and level was normal vitamin K given (8) Low magnesium level: Code(s): R79.0 - Abnormal level of blood mineral Status: Acute Assessment and Plan: Replace as needed. The magnesium was replaced. (9) GERD (gastroesophageal reflux disease): Code(s): K21.9 - Gastro-esophageal reflux disease without esophagitis Status: Acute Assessment and Plan: IV PPI Additional Plan DVT prophylaxis - SCDs Stress ulcer prophylaxis - PPI Nutrition - NPO Code Status - Full Code patient's updated at bedside. Total Critical Care Time - 35 minutes Due to a high probability of clinically significant, life threatening deterioration, the patient required my highest level of preparedness to intervene emergently and I personally spent this critical care time directly and personally managing the patient. This critical care time included obtaining a history; examining the patient; pulse oximetry; ordering and review of studies; arranging urgent treatment with development of a management plan; evaluation of patient's response to treatment; frequent reassessment; and discussions with other providers. It was exclusive of separately billable procedures and treating other patients and teaching time. Please see Assessment and Plan section and the rest of the note for further information on patient assessment and treatment Clinical Application Specialist Consult Note Consult date: 12/11/19 Time Seen: 07:25 HPI: Hetal Curry is a 59 year old female with PMH cirrhosis, autoimmune hepatitis and gastric varices was evaluated for postmenopausal bleeding. The patient had a D&C previously on 09/16/[address] Rodríguez
[2019-12-11] MEDS: PANTOPRAZOLE SODIUM IV 40 MG VIAL IV PUSH (08:18)
[2019-12-11 08:43] LABS: Fibrinogen 188 mg/dl (215-510)
[2019-12-11 09:01] LABS: Alveolar/Arterial O2 Gradient 98.2 mmHg; Base Excess ABG 0.7 mEq/l (+/-2.0); Fractional Inspired Oxygen 30 %; HCO3 ABG 24.4 mEq/l (22.0-26.0); Oxygen Content ABG 12.5 %vol (16.0-22.0); Oxygen Saturation ABG 95.6 % (95.0-100.0); Oxyhemoglobin 92.8 % THb (90.0-100.0); PCO2 ABG 35.6 mmHg (35.0-45.0); PO2 ABG 73.9 mmHg (80.0-100.0); PO2 FiO2 Ratio Arterial Blood 2.46 %; Total Hemoglobin 9.5 g/dL (12.0-18.0); pH ABG 7.454 (7.350-7.450)
[2019-12-11 09:02] LABS: Arterial Blood Gas PEEP 5 cmH2O; Arterial Blood Gas Pressure Support 5 cmH2O; Arterial Blood Gas Vent Mode SPONTANEOUS; Device VENTILATOR; Site Drawn ARTLINE
--- NOTE | 2019-12-11 09:31 | WPDANESPN ---
Anes - Prog Note Post-Op Date/Time: 12/11/19 09:31 Cardiovascular status: other (pt remains on pressor support) Respiratory status: other (pt remains intubated. currently having weaning trial. pt awake,nod in response. indicates feeling well.) Airway patency: other (intubated) Mental status: other Vital Signs: Last Vital Signs Temp 100.0 F H 12/11/19 07:44 Pulse 108 H 12/11/19 07:55 Resp 19 12/11/19 07:44 BP 112/66 12/11/19 07:44 Pulse Ox 97 12/11/19 07:55 I/O: Intake & Output 12/10/19 12/11/19 12/11/19 23:59 07:59 15:59 Intake Total 3891 777 Output Total 425 Balance 3891 352 Laboratory Tests 12/11/19 04:21 12/11/19 04:21 12/07/19 12/07/19 12/10/19 16:11 16:11 16:00 WBC RBC Hgb 7.4 L Hct 23.1 L MCV MCH MCHC RDW Plt Count MPV % Immature Plt Fraction PT INR APTT Fibrinogen Puncture Site ABG pH ABG pCO2 ABG pO2 ABG PO2/FiO2 Ratio ABG HCO3 ABG O2 Saturation ABG O2 Content ABG Base Excess A-a Gradient Oxyhemoglobin Carboxyhemoglobin Methemoglobin Reduced Hemoglobin Total Hemoglobin O2 Delivery Device O2 Liters/Min Minute Volume Vent Rate Vent Mode FiO2 Tidal Volume PEEP Peak Inspir Pressure Pressure Support Sodium Potassium Chloride Carbon Dioxide BUN Creatinine Estim Creat Clear Calc Estimated GFR Glucose POC Capillary Glucose Lactic Acid Calcium Phosphorus Magnesium Total Bilirubin AST ALT Alkaline Phosphatase Ammonia Total Protein Albumin Blood Type TNP TNP Antibody Screen TNP TNP Enhanced Crossmatch See Detail See Detail 12/10/19 12/10/19 12/10/19 16:00 17:10 17:10 WBC RBC Hgb 7.3 L Hct 21.9 L MCV MCH MCHC RDW Plt Count MPV % Immature Plt Fraction PT 29.5 H INR 2.9 APTT 71.6 H Fibrinogen Puncture Site Artline ABG pH 7.132 L* ABG pCO2 55.6 H ABG pO2 150.5 H ABG PO2/FiO2 Ratio 0.00 ABG HCO3 18.2 L ABG O2 Saturation 98.2 ABG O2 Content 11.7 L ABG Base Excess -10.5 A-a Gradient Not Reportable Oxyhemoglobin 95.9 Carboxyhemoglobin 0.2 Methemoglobin 0.8 Reduced Hemoglobin 3.1 Total Hemoglobin 8.4 L O2 Delivery Device Simple mask O2 Liters/Min 10.0 Minute Volume Vent Rate Vent Mode FiO2 21 Tidal Volume PEEP Peak Inspir Pressure Pressure Support Sodium Potassium Chloride Carbon Dioxide BUN Creatinine Estim Creat Clear Calc Estimated GFR Glucose POC Capillary Glucose Lactic Acid Calcium Phosphorus Magnesium Total Bilirubin AST ALT Alkaline Phosphatase Ammonia Total Protein Albumin Blood Type Antibody Screen Enhanced Crossmatch 12/10/19 12/10/19 12/10/19 17:21 18:00 18:59 WBC RBC Hgb Hct MCV MCH MCHC RDW Plt Count MPV % Immature Plt Fraction PT INR APTT Fibrinogen Puncture Site Artline Artline ABG pH 7.217 L* 7.213 L* ABG pCO2 39.1 42.7 ABG pO2 227.7 H 347.3 H ABG PO2/FiO2 Ratio 2.28 3.47 ABG HCO3 15.5 L 16.8 L ABG O2 Saturation 99.3 99.7 ABG O2 Content 11.7 L 17.4 ABG Base Excess -11.3 -10.5 A-a Gradient 446.2 323.0 Oxyhemoglobin 97.2 97.8 Carboxyhemoglobin 0.2 0.3 Methemoglobin 0.5 0.5 Reduced Hemoglobin 2.1 1.4 Total Hemoglobin 8.1 L 12.0 O2 Delivery Device In or/per anesthesia In or/per anesthesia O2 Liters/Min 0.0 Not Reportable Minute Volume Vent Rate Vent Mode FiO2 100 100 Tidal Volume PEEP Peak Inspir Pressure Pressure Support Sodium Potassium Chloride Carbon Dioxide BUN Creatinine Estim Creat Clear Calc Estimated GFR Glucose POC Capillary Glucos
[2019-12-11 11:13] LABS: Hematocrit 23.9 % (37.0-47.0); Hemoglobin 8.4 g/dL (12.0-15.0)
[2019-12-11 12:02] LABS: Glucose Point of Care 143 (65-105)
[2019-12-11] MEDS: ALBUMIN HUMAN 25% 25 GM/100 ML 100 ML IVPB ×3 (12:08→23:46)
[2019-12-11] MEDS: SODIUM CHLORIDE 0.9% IV 1,000 ML 75 ML IV CONT (12:08)
--- NOTE | 2019-12-11 12:45 | PM.GYNPNOP ---
BALLISTICS TESTER - A/P Postoperative Procedures: Procedures Operation Date: 12/10/19 13:00 Actual Procedures Side Surgeon p Robotic Assisted Total Vaginal Hysterectomy, Bilateral Salpingo-Oopherectomy Bilateral MD tyrese Avalos Exploratory Laparotomy, CONTROL OF BLEEDING Mariano James MD A: POD#1, s/p robotic-assisted TVHBSO with subsequent laparotomy / evacuation of hemoperitoneum for acute postop bleed. Now extubated, still on pressors. Hgb 8.4. P: Ice chips now, may try clear liquids this evening. Time Spent With Patient Time with patient: less than 15 minutes BALLISTICS TESTER- PN:Subj Post-Op Subjective Date/time seen: 12/11/19 12:45 Interval history: Has been extubated. Resting comfortably in the bed, asking for something to eat. Pain under good control. Medical care managed by corrections unit supervisor staff. Exam Narrative: Exam Narrative: AVSS ABD soft, nontender. Incision is clean, dry, intact. BALLISTICS TESTER - PN: Obj Data Vital Signs Vital Signs: Vital Signs - 24 hr 12/10/19 20:08 12/10/19 20:27 12/10/19 21:24 Temperature 35.6 C L Pulse Rate 91 93 Respiratory Rate Blood Pressure Pulse Oximetry 100 12/10/19 22:00 12/10/19 22:59 12/11/19 00:00 Temperature 35.8 C L 36.2 C L Pulse Rate 94 96 92 Respiratory Rate 18 18 Blood Pressure 102/55 L 89/46 L Pulse Oximetry 94 100 94 12/11/19 02:00 12/11/19 02:02 12/11/19 04:00 Temperature 36.2 C L 37.2 C Pulse Rate 104 H 105 H 103 H Respiratory Rate 17 20 Blood Pressure 105/75 112/66 Pulse Oximetry 98 99 97 12/11/19 05:05 12/11/19 05:12 12/11/19 06:00 Temperature 37.2 C Pulse Rate 108 H 105 H Respiratory Rate Blood Pressure 100/57 L Pulse Oximetry 98 12/11/19 06:05 12/11/19 07:44 12/11/19 07:55 Temperature 37.0 C 37.8 C H Pulse Rate 103 H 108 H 108 H Respiratory Rate 18 19 Blood Pressure 112/66 112/66 Pulse Oximetry 97 96 97 12/11/19 08:00 12/11/19 09:56 12/11/19 10:00 Temperature Pulse Rate 107 H 107 H 105 H Respiratory Rate 19 Blood Pressure 97/69 L 85/55 L Pulse Oximetry 97 96 12/11/19 10:04 12/11/19 11:00 12/11/19 12:00 Temperature Pulse Rate 104 H Respiratory Rate Blood Pressure 81/61 L Pulse Oximetry 97 89 L 95 12/11/19 12:06 12/11/19 14:00 12/11/19 14:06 Temperature 37.4 C Pulse Rate 106 H 75 97 Respiratory Rate 17 19 Blood Pressure 104/64 111/61 108/64 Pulse Oximetry 95 95 Intake/Output Intake/Output: Intake & Output 12/08/19 12/09/19 12/10/19 12/11/19 23:59 23:59 23:59 23:59 Intake Total 3891 1601 Output Total 425 Balance 3891 1176 Meds/Results Medications: Active Medications Generic Name Dose Route Start Last Admin Trade Name Freq PRN Reason Stop Dose Admin Hydrocodone Bitart/Acetaminophen 1 tab 12/11/19 13:19 [place] 5-325 Mg PO Q4H PRN Pain Rated 4-6 Albuterol 2.5 mg 12/10/19 21:13 Albuterol Sulf Neb 2.5mg/0.5ml INHALATION Q6HRT PRN Wheezing Dextrose 12.5 gm 12/10/19 21:13 Dextrose 50% Syringe IV PUSH PRN PRN Hypoglycemia Protocol Fentanyl Citrate 50 mcg 12/11/19 13:19 12/11/19 13:26 Sublimaze IV PUSH 25 mcg Q2H PRN Administration Pain Rated 7-10 Glucagon 1 mg 12/10/19 21:13 Glucagon For Inj IM PRN PRN Hypoglycemia Protocol Glucose 15 gm 12/10/19 21:13 Glutose 15 PO PRN PRN Hypoglycemia Protocol Aztreonam 1 gm/ Dextrose 50 mls @ 100 mls/hr 12/10/19 22:00 12/11/19 15:11 IVPB Infused Q8HR JON Infusion Metronidazole 500 mg in 100 mls @ 100 mls/hr 12/11/19 00:00 12/11/19 13:10 Flagyl 500 Mg/Iso Soln 100 Ml IVPB Infused Q6HR JON Infusion Dextrose 1,000 mls @ 100 mls/hr 12/10/19 21:13 Dextrose 5% 1,000 Ml IVPB PRN PRN Hypoglycemia Protocol Sodium Chloride 1,000 mls @ 75 mls/hr 12/10/19 22:15 12/11/19 12:08 Normal Saline Iv IV CONT 75 mls/hr .[id number] JON Administration Norepine
--- NOTE | 2019-12-11 15:24 | PM.IMPN ---
Progress Note: A&P Assessment and Plan (1) Respiratory acidosis: Code(s): E87.2 - Acidosis Status: Acute Assessment and Plan: Acute respiratory failure with hypercapnia, patient was intubated and placed on a ventilator. Able to be extubated later this a.m.. The patient also had lactic acidosis which resolved with fluid challenge. Patient could have been in hypovolemic shock. Could also be early sepsis so covered with antibiotics also after culture. (2) Postoperative hemorrhage: Status: Acute Assessment and Plan: Management per Dr. goetz. According to his note the patient had 6 units of packed red blood cells and 6 units of FFP. H&H closely every 6 hours. The patient is in the intensive care unit. Transfuse as needed. Vasopressors as needed. 9.3 this am (3) Advanced cirrhosis of liver: Code(s): K74.60 - Unspecified cirrhosis of liver Status: Acute Assessment and Plan: Patient's lactulose, Aldactone and Lasix are on hold at this time. (4) Obstructive sleep apnea: Code(s): G47.33 - Obstructive sleep apnea (adult) (pediatric) Status: Chronic Assessment and Plan: Patient is currently vented bit may need a CPAP when she comes off the vent. (5) HTN (hypertension), malignant: Code(s): I10 - Essential (primary) hypertension Status: Acute Assessment and Plan: Home medications are on hold at this time due to patient's low blood pressure from earlier. (6) H/O: hysterectomy: Code(s): Z90.710 - Acquired absence of both cervix and uterus Status: Acute Assessment and Plan: Postop care per Dr. Goetz. Subjective Date/time seen: 12/11/19 15:24 Interval history: Date of visit 12/11. 59-year-old white female with nonalcoholic cirrhosis had postop bleeding complication with total abdominal hysterectomy and bilateral salpingectomy oophorectomy. She receive 6 units of packed cells and 6 units of FFP and was stabilized 1 source of bleeding was found and cauterized. She was continue ventilation due to respiratory acidosis and initially low blood pressure treated with Levophed in the ICU. She is alert today with no complaints on the vent Exam Narrative: Exam Narrative: Blood pressure 108/64 pulse is 86 with low-dose nor epinephrine satting presently 94% on 2 L nasal cannula after extubation Lungs clear CV regular rate rhythm Abdomen is soft nontender Extremities without edema distal pulses 1+ Neuro alert pleasant cooperative no focal deficits Objective Data Vital Signs Vital Signs: Vital Signs - 24 hr 12/10/19 20:08 12/10/19 20:27 12/10/19 21:24 Temperature 35.6 C L Pulse Rate 91 93 Respiratory Rate Blood Pressure Pulse Oximetry 100 12/10/19 22:00 12/10/19 22:59 12/11/19 00:00 Temperature 35.8 C L 36.2 C L Pulse Rate 94 96 92 Respiratory Rate 18 18 Blood Pressure 102/55 L 89/46 L Pulse Oximetry 94 100 94 12/11/19 02:00 12/11/19 02:02 12/11/19 04:00 Temperature 36.2 C L 37.2 C Pulse Rate 104 H 105 H 103 H Respiratory Rate 17 20 Blood Pressure 105/75 112/66 Pulse Oximetry 98 99 97 12/11/19 05:05 12/11/19 05:12 12/11/19 06:00 Temperature 37.2 C Pulse Rate 108 H 105 H Respiratory Rate Blood Pressure 100/57 L Pulse Oximetry 98 12/11/19 06:05 12/11/19 07:44 12/11/19 07:55 Temperature 37.0 C 37.8 C H Pulse Rate 103 H 108 H 108 H Respiratory Rate 18 19 Blood Pressure 112/66 112/66 Pulse Oximetry 97 96 97 12/11/19 08:00 12/11/19 09:56 12/11/19 10:00 Temperature Pulse Rate 107 H 107 H 105 H Respiratory Rate 19 Blood Pressure 97/69 L 85/55 L Pulse Oximetry 97 96 12/11/19 10:04 12/11/19 11:00 12/11/19 12:00 Temperature Pulse Rate 104 H Respiratory Rate Blood Pressure 81/61 L Pulse Oximetry 97 89 L 95 12/11/19 12:06 12/11/19 14:00 12/11/19 14:06 Temperature 37.4 C Pulse Rate 106 H 75 97 Respiratory Rate 17 19 Blood Pressure 104/
[2019-12-11 16:50] LABS: Hematocrit 22.1 % (37.0-47.0); Hemoglobin 7.7 g/dL (12.0-15.0)
[2019-12-11 18:08] LABS: Glucose Point of Care 192 (65-105)
--- NOTE | 2019-12-11 18:15 | PC.NURSE ---
Extubated at [address] James to bedside, reviewed case with patient. Advanced diet to clear liquids. Patient tolerated dinner.
[2019-12-11 23:45] LABS: Glucose Point of Care 179 (65-105)
[2019-12-12] VITALS (26 sets, daily range): BP systolic 93–119; BP diastolic 57–73; PULSE 82–105; RESP 12–22; TEMP 36.5–37.1; O2SAT 92–100
[2019-12-12] MEDS: SODIUM CHLORIDE 0.9% IV 1,000 ML 75 ML IV CONT (01:23)
[2019-12-12] MEDS: metroNIDAZOLE 500 MG/ISO 100ML 500 MG/100 ML BAG 100 MG IVPB ×4 (05:17→23:48)
[2019-12-12 05:19] LABS: Immature Platelet Fraction Pct 5.3 % (0.9-11.2); Mean Corpuscular HGB Conc 33.5 g/dl (32-36); Mean Corpuscular Hemoglobin 30.5 pg (26-34); Mean Platelet Volume 10.8 fl (7.4-10.4); Platelet Count Result 33 k/mm3 (150-375); Red Cell Distribution Width 16.1 % (11.5-14.5); White Blood Count 3.7 K/mm3 (4.5-10.0)
[2019-12-12] MEDS: ALBUMIN HUMAN 25% 25 GM/100 ML 100 ML IVPB (05:19)
[2019-12-12 05:20] LABS: Alanine Aminotransferase 72 U/L (4-35); Albumin Level 2.5 g/dL (3.5-5.1); Alkaline Phosphatase 39 U/L (38-126); Aspartate Amino Transferase 115 U/L (14-36); Bilirubin,Total 0.9 mg/dL (0.2-1.3); Blood Urea Nitrogen 16 mg/dL (7-17); Calcium 8.1 mg/dL (8.4-10.2); Carbon Dioxide 27 mmol/L (22-30); Chloride 105 mmol/L (98-107); Estimated CRCL calculation 104 ml/min; Estimated Glomerular Filt Rate > 60; Glucose 141 mg/dL (65-105); INR 1.5; Magnesium 1.7 mg/dL (1.6-2.3); Phosphorus 2.6 mg/dL (2.5-4.5); Potassium 4.1 mmol/L (3.4-5.0); Prothrombin Time 17.6 Seconds (11.1-14.7); Sodium 135 mmol/L (137-145)
[2019-12-12] MEDS: AZTREONAM 1 GM in DEXTROSE 5% IN WATER 50 ML IVPB ×3 (05:21→21:53)
[2019-12-12 05:39] LABS: Hemoglobin 6.4 g/dL (12.0-15.0)
[2019-12-12 05:40] LABS: Hematocrit 19.1 % (37.0-47.0)
--- NOTE | 2019-12-12 07:00 | WPDINTPN ---
Progress Note: A&P Assessment and Plan (1) Acute respiratory failure following trauma and surgery: Code(s): J95.821 - Acute postprocedural respiratory failure Status: Acute Assessment and Plan: Acute Respiratory failure secondary to anesthesia, hypotension and Hemorrhage extubated yesterday after a successful weaning trial continue aggressive incentive spirometry. Physical therapy evaluation and out of bed today saturating well on nasal cannula (2) Shock: Code(s): R57.9 - Shock, unspecified Status: Acute Assessment and Plan: multifactorial shock from hemorrhagic volume loss, anesthesia and caution with sepsis continue empiric broad-spectrum antibiotic with aztreonam and Flagyl patient is 4-5 L positive sense will be cautious with IV fluids as patient has cirrhosis and is third-spacing, patient was given albumin 25% Levophed weaned off will transfuse 2 more units of packed red cells today monitor (3) Postoperative hemorrhage: Status: Acute Assessment and Plan: patient had 6 units of packed red blood cells and 6 units of FFP. hemoglobin has gradually trended down to 6.4 today. no obvious signs of bleed and patient is off of Levophed suggest that this may be calibration rather than ongoing bleed. Will transfuse 2 more units of packed red cells today and continue serial monitoring of hemoglobin. (4) DIC (disseminated intravascular coagulation): Code(s): D65 - Disseminated intravascular coagulation [defibrination syndrome] Status: Acute Assessment and Plan: patient was given 6 units of FFP and later 10 mg of vitamin K in the ICU INR 1.5. Fibrinogen level is 188. Continue to monitor closely transfuse as needed. (5) S/P exploratory laparotomy: Code(s): Z98.890 - Other specified postprocedural states Status: Acute Assessment and Plan: postop day 2 s/p robotic-assisted TVHBSO with subsequent laparotomy / evacuation of hemoperitoneum for acute postop bleed. pain control and surgical wound care per OBGYN (6) H/O: hysterectomy: Code(s): Z90.710 - Acquired absence of both cervix and uterus Status: Acute Assessment and Plan: see above (7) Advanced cirrhosis of liver: Code(s): K74.60 - Unspecified cirrhosis of liver Status: Acute Assessment and Plan: Patient's lactulose, Aldactone and Lasix are on hold at this time. ammonia was checked and level was normal vitamin K given (8) Low magnesium level: Code(s): R79.0 - Abnormal level of blood mineral Status: Acute Assessment and Plan: Replace as needed. The magnesium was replaced. (9) GERD (gastroesophageal reflux disease): Code(s): K21.9 - Gastro-esophageal reflux disease without esophagitis Status: Acute Assessment and Plan: IV PPI Additional Plan DVT prophylaxis - SCDs Stress ulcer prophylaxis - PPI Nutrition - advance diet as per crop roller Code Status - Full Code Consult physical therapy and occupational therapy patient's updated at bedside. Total Critical Care Time - 30 minutes Due to a high probability of clinically significant, life threatening deterioration, the patient required my highest level of preparedness to intervene emergently and I personally spent this critical care time directly and personally managing the patient. This critical care time included obtaining a history; examining the patient; pulse oximetry; ordering and review of studies; arranging urgent treatment with development of a management plan; evaluation of patient's response to treatment; frequent reassessment; and discussions with other providers. It was exclusive of separately billable procedures and treating other patients and teaching time. Please see Assessment and Plan section and the rest of the note for further information on patient assessment and treatment Subjective Date/time seen:
[2019-12-12] MEDS: PANTOPRAZOLE SODIUM IV 40 MG VIAL IV PUSH (08:17)
[2019-12-12] MEDS: SODIUM CHLORIDE 0.9% IV 250 ML 30 ML IV CONT (09:13)
--- NOTE | 2019-12-12 09:58 | PM.GYNPNOP ---
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 P: Medical mangagement per ICU staff. Advance diet as tolerated. Time Spent With Patient Time with patient: less than 15 minutes RESIDENTIAL REAL ESTATE APPRAISER- PN:Subj Post-Op Subjective Date/time seen: 12/12/19 09:58 Interval history: Pain controlled with Fentanyl. On NC O2 2L. Off pressors. Receiving 2 units PRBC. Asking for food. Exam Narrative: Exam Narrative: AVSS ABD soft, appropriately tender. Incision c/d/i. EXT nontender RESIDENTIAL REAL ESTATE APPRAISER - PN: Obj Data Vital Signs Vital Signs: Vital Signs - 24 hr 12/11/19 10:00 12/11/19 10:04 12/11/19 11:00 Temperature Pulse Rate 105 H Respiratory Rate Blood Pressure 85/55 L Pulse Oximetry 97 89 L 12/11/19 12:00 12/11/19 12:06 12/11/19 14:00 Temperature 37.4 C Pulse Rate 104 H 106 H 75 Respiratory Rate 17 Blood Pressure 81/61 L 104/64 111/61 Pulse Oximetry 95 95 12/11/19 14:06 12/11/19 16:00 12/11/19 18:00 Temperature 37.0 C Pulse Rate 97 94 111 H Respiratory Rate 19 17 18 Blood Pressure 108/64 112/67 115/64 Pulse Oximetry 95 95 96 12/11/19 20:00 12/11/19 21:40 12/11/19 21:46 Temperature 36.8 C Pulse Rate 107 H 101 H 101 H Respiratory Rate 19 18 18 Blood Pressure 109/64 Pulse Oximetry 96 96 96 12/11/19 22:00 12/12/19 00:00 12/12/19 02:00 Temperature 37.1 C Pulse Rate 100 104 H 90 Respiratory Rate 14 21 H 12 Blood Pressure 96/64 L 103/57 L 97/60 L Pulse Oximetry 96 97 96 12/12/19 03:48 12/12/19 04:00 12/12/19 05:52 Temperature 36.9 C Pulse Rate 100 84 95 Respiratory Rate 20 16 Blood Pressure 105/60 111/64 Pulse Oximetry 96 97 12/12/19 05:53 12/12/19 07:49 12/12/19 08:00 Temperature 36.9 C Pulse Rate 92 100 96 Respiratory Rate 15 17 Blood Pressure 111/64 93/60 L 109/66 Pulse Oximetry 92 97 12/12/19 09:11 12/12/19 09:27 Temperature 36.6 C 36.6 C Pulse Rate 105 H 97 Respiratory Rate 18 18 Blood Pressure 97/63 L 107/62 Pulse Oximetry 98 100 Intake/Output Intake/Output: Intake & Output 12/09/19 12/10/19 12/11/19 12/12/19 23:59 23:59 23:59 23:59 Intake Total 3891 3744 1387 Output Total 1075 1075 Balance 3891 0161 612 Meds/Results Medications: Active Medications Generic Name Dose Route Start Last Admin Trade Name Freq PRN Reason Stop Dose Admin Hydrocodone Bitart/Acetaminophen 1 tab 12/11/19 13:19 12/12/19 05:19 [place] 5-325 Mg PO 1 tab Q4H PRN Administration Pain Rated 4-6 Albuterol 2.5 mg 12/10/19 21:13 Albuterol Sulf Neb 2.5mg/0.5ml INHALATION Q6HRT PRN Wheezing Dextrose 12.5 gm 12/10/19 21:13 Dextrose 50% Syringe IV PUSH PRN PRN Hypoglycemia Protocol Fentanyl Citrate 50 mcg 12/11/19 13:19 12/12/19 06:50 Sublimaze IV PUSH 50 mcg Q2H PRN Administration Pain Rated 7-10 Glucagon 1 mg 12/10/19 21:13 Glucagon For Inj IM PRN PRN Hypoglycemia Protocol Glucose 15 gm 12/10/19 21:13 Glutose 15 PO PRN PRN Hypoglycemia Protocol Aztreonam 1 gm/ Dextrose 50 mls @ 100 mls/hr 12/10/19 22:00 12/12/19 05:51 IVPB Infused Q8HR JON Infusion Metronidazole 500 mg in 100 mls @ 100 mls/hr 12/11/19 00:00 12/12/19 06:17 Flagyl 500 Mg/Iso Soln 100 Ml IVPB Infused Q6HR JON Infusion Dextrose 1,000 mls @ 100 mls/hr 12/10/19 21:13 Dextrose 5% 1,000 Ml IVPB PRN PRN Hypoglycemia Protocol Norepinephrine Bitartrate 8 mg in 250 mls @ 0 mls/hr 12/11/19 00:55 12/11/19 23:46 Levophed 8 Mg/D5w 250 Ml IV CONT 0 mcg/min .Q0M JON 0 mls/hr Titration Protocol 0 MCG/MIN Sodium Chloride 250 mls @ 30 mls/hr 12/12/19 05:42 12/12/19 09:
--- NOTE | 2019-12-12 13:50 | PM.IMPN ---
Progress Note: A&P Assessment and Plan (1) Respiratory acidosis: Code(s): E87.2 - Acidosis Status: Acute Assessment and Plan: Acute respiratory failure with hypercapnia, patient was intubated and placed on a ventilator. Able to be extubated 12/11.. The patient also had lactic acidosis which resolved with fluid challenge. Patient could have been in hypovolemic shock. Could also be early sepsis so covered with antibiotics also after culture. (2) Postoperative hemorrhage: Status: Acute Assessment and Plan: Management per Dr. goetz. According to his note the patient had 6 units of packed red blood cells and 6 units of FFP. H&H closely every 6 hours. Hgb at 6.4 today and will receive 2 more units of packed RBC(8 total) (3) Advanced cirrhosis of liver: Code(s): K74.60 - Unspecified cirrhosis of liver Status: Acute Assessment and Plan: Patient's lactulose, Aldactone and Lasix are on hold at this time. (4) Obstructive sleep apnea: Code(s): G47.33 - Obstructive sleep apnea (adult) (pediatric) Status: Chronic Assessment and Plan: Patient is currently vented bit may need a CPAP when she comes off the vent. (5) HTN (hypertension), malignant: Code(s): I10 - Essential (primary) hypertension Status: Acute Assessment and Plan: Home medications are on hold at this time due to patient's low blood pressure from earlier. (6) H/O: hysterectomy: Code(s): Z90.710 - Acquired absence of both cervix and uterus Status: Acute Assessment and Plan: Postop care per Dr. Goetz. Subjective Date/time seen: 12/12/19 13:50 Interval history: Date of visit . 59-year-old white female with nonalcoholic cirrhosis had postop bleeding complication with total abdominal hysterectomy and bilateral salpingectomy oophorectomy. She receive 6 units of packed cells and 6 units of FFP and was stabilized after source of bleeding was found and cauterized. She was continue ventilation due to respiratory acidosis and initially low blood pressure treated with Levophed in the ICU. She is alert today with no complaints off vent Exam Narrative: Exam Narrative: Blood pressure 120/66 pulse is 100 off nor epinephrine satting presently 94% on 2 L nasal cannula after extubation Lungs clear CV regular rate rhythm Abdomen is soft nontender Extremities without edema distal pulses 1+ Neuro alert pleasant cooperative no focal deficits Objective Data Vital Signs Vital Signs: Vital Signs - 24 hr 12/11/19 14:00 12/11/19 14:06 12/11/19 16:00 Temperature 37.0 C Pulse Rate 75 97 94 Respiratory Rate 19 17 Blood Pressure 111/61 108/64 112/67 Pulse Oximetry 95 95 12/11/19 18:00 12/11/19 20:00 12/11/19 21:40 Temperature 36.8 C Pulse Rate 111 H 107 H 101 H Respiratory Rate 18 19 18 Blood Pressure 115/64 109/64 Pulse Oximetry 96 96 96 12/11/19 21:46 12/11/19 22:00 12/12/19 00:00 Temperature 37.1 C Pulse Rate 101 H 100 104 H Respiratory Rate 18 14 21 H Blood Pressure 96/64 L 103/57 L Pulse Oximetry 96 96 97 12/12/19 02:00 12/12/19 03:48 12/12/19 04:00 Temperature 36.9 C Pulse Rate 90 100 84 Respiratory Rate 12 20 16 Blood Pressure 97/60 L 105/60 Pulse Oximetry 96 96 97 12/12/19 05:52 12/12/19 05:53 12/12/19 07:49 Temperature 36.9 C Pulse Rate 95 92 100 Respiratory Rate 15 17 Blood Pressure 111/64 111/64 93/60 L Pulse Oximetry 92 97 12/12/19 08:00 12/12/19 09:11 12/12/19 09:27 Temperature 36.6 C 36.6 C Pulse Rate 96 105 H 97 Respiratory Rate 18 18 Blood Pressure 109/66 97/63 L 107/62 Pulse Oximetry 98 100 12/12/19 10:00 12/12/19 10:27 12/12/19 10:29 Temperature 36.8 C 36.8 C Pulse Rate 100 94 94 Respiratory Rate 18 16 16 Blood Pressure 110/63 102/59 L 102/59 L Pulse Oximetry 98 98 95 12/12/19 11:27 12/12/19 12:00 12/12/19 12:02 Temperature 36.6 C 36.7 C 36.7 C Pulse Rate 95 83 90 Respiratory Rate 18
[2019-12-12 16:14] LABS: Hematocrit 26.3 % (37.0-47.0); Hemoglobin 8.6 g/dL (12.0-15.0)
[2019-12-12] MEDS: SIMETHICONE 80 MG TAB.CHEW PO (20:57)
[2019-12-12 22:03] LABS: Hematocrit 25.4 % (37.0-47.0); Hemoglobin 8.4 g/dL (12.0-15.0)
[2019-12-13] VITALS (15 sets, daily range): BP systolic 108–132; BP diastolic 63–82; PULSE 83–112; RESP 12–22; TEMP 36.7–37.2; O2SAT 90–98
[2019-12-13] MEDS: SIMETHICONE 80 MG TAB.CHEW PO ×3 (04:41→17:51)
[2019-12-13 04:43] LABS: Hematocrit 25.7 % (37.0-47.0); Hemoglobin 8.4 g/dL (12.0-15.0); Immature Platelet Fraction Pct 4.5 % (0.9-11.2); Mean Corpuscular HGB Conc 32.7 g/dl (32-36); Mean Corpuscular Hemoglobin 29.3 pg (26-34); Mean Corpuscular Volume 89.5 fl (80-100); Mean Platelet Volume 10.8 fl (7.4-10.4); Platelet Count Result 34 k/mm3 (150-375); Red Blood Count 2.87 M/mm3 (4.2-5.4); Red Cell Distribution Width 17.5 % (11.5-14.5)
[2019-12-13 04:52] LABS: INR 1.3; Prothrombin Time 15.9 Seconds (11.1-14.7)
[2019-12-13 04:55] LABS: Alanine Aminotransferase 75 U/L (4-35); Albumin Level 2.6 g/dL (3.5-5.1); Alkaline Phosphatase 51 U/L (38-126); Aspartate Amino Transferase 97 U/L (14-36); Bilirubin,Total 0.9 mg/dL (0.2-1.3); Blood Urea Nitrogen 11 mg/dL (7-17); Calcium 8.1 mg/dL (8.4-10.2); Carbon Dioxide 27 mmol/L (22-30); Chloride 100 mmol/L (98-107); Estimated CRCL calculation 120 ml/min; Estimated Glomerular Filt Rate > 60; Glucose 120 mg/dL (65-105); Magnesium 1.6 mg/dL (1.6-2.3); Phosphorus 2.2 mg/dL (2.5-4.5); Potassium 3.9 mmol/L (3.4-5.0); Sodium 135 mmol/L (137-145)
[2019-12-13] MEDS: metroNIDAZOLE 500 MG/ISO 100ML 500 MG/100 ML BAG 100 MG IVPB ×3 (05:04→20:19)
[2019-12-13] MEDS: AZTREONAM 1 GM in DEXTROSE 5% IN WATER 50 ML IVPB ×3 (05:05→22:02)
--- NOTE | 2019-12-13 07:00 | WPDINTPN ---
Progress Note: A&P Assessment and Plan (1) Acute respiratory failure following trauma and surgery: Code(s): J95.821 - Acute postprocedural respiratory failure Status: Acute Assessment and Plan: Acute Respiratory failure secondary to anesthesia, hypotension and Hemorrhage extubated 12/11 after a successful weaning trial saturating well on room air continue aggressive incentive spirometry. Physical therapy evaluation and out of bed today (2) Shock: Code(s): R57.9 - Shock, unspecified Status: Acute Assessment and Plan: multifactorial shock from hemorrhagic volume loss, anesthesia and caution with sepsis resolved and patient has been off of Levophed for more than 24 hours patient is status post transfusion of 8 units of packed red cells in total continue empiric broad-spectrum antibiotic with aztreonam and Flagyl patient is 4-5 L positive sense will be cautious with IV fluids as patient has cirrhosis and is third-spacing, patient was given albumin 25% will give Lasix IV x1 monitor (3) Postoperative hemorrhage: Status: Acute Assessment and Plan: patient had 6 units of packed red blood cells and 6 units of FFP. she received 2 units of packed red cells yesterday hemoglobin now appears to be stable with no other objective sign of bleeding. Blood pressure is stable continue to monitor hemoglobin (4) DIC (disseminated intravascular coagulation): Code(s): D65 - Disseminated intravascular coagulation [defibrination syndrome] Status: Acute Assessment and Plan: appears to have resolved. patient was given 6 units of FFP and later 10 mg of vitamin K in the ICU INR 1.3. Fibrinogen level is 188. Continue to monitor closely transfuse as needed. (5) S/P exploratory laparotomy: Code(s): Z98.890 - Other specified postprocedural states Status: Acute Assessment and Plan: postop day 2 s/p robotic-assisted TVHBSO with subsequent laparotomy / evacuation of hemoperitoneum for acute postop bleed. pain control and surgical wound care per OBGYN (6) H/O: hysterectomy: Code(s): Z90.710 - Acquired absence of both cervix and uterus Status: Acute Assessment and Plan: see above (7) Advanced cirrhosis of liver: Code(s): K74.60 - Unspecified cirrhosis of liver Status: Acute Assessment and Plan: Patient's lactulose, Aldactone and Lasix are on hold at this time. ammonia was checked and level was normal vitamin K Was given (8) Low magnesium level: Code(s): R79.0 - Abnormal level of blood mineral Status: Acute Assessment and Plan: will replace Mag today (9) GERD (gastroesophageal reflux disease): Code(s): K21.9 - Gastro-esophageal reflux disease without esophagitis Status: Acute Assessment and Plan: IV PPI Additional Plan DVT prophylaxis - SCDs Stress ulcer prophylaxis - PPI Nutrition - diet advanced to regular byr obstetrics gynecology md Code Status - Full Code Consult physical therapy and occupational therapy transfer out of ICU today Subjective Date/time seen: 12/13/19 0800 patient feels much better today. She denies any abdominal pain today. Tolerated p.o. diet last night without any issues. No evidence of bleeding or bruising anywhere. Saturating well on room air. No new complaints. Afebrile Review of Systems Constitutional: Constitutional: Reports no additional constitutional complaints Eyes: Eyes: Reports no additional eye complaints ENT: Reports system reviewed and no additional complaints, except as documented Cardiovascular: Cardiovascular: Reports no additional cardiovascular complaints Respiratory: Respiratory: Reports no additional respiratory complaints Gastrointestinal: Gastrointestinal: Reports abdominal pain Comments: when dressing is changed Genitourinary: Genitourinary: Reports no additional female genitourinary c
[2019-12-13] MEDS: PANTOPRAZOLE SODIUM IV 40 MG VIAL IV PUSH (08:46)
[2019-12-13] MEDS: FUROSEMIDE INJ 40 MG/4 ML VIAL 20 MG IV PUSH (11:42)
[2019-12-13] MEDS: MAGNESIUM SULF 2 GM/WATER 50ML 2 GM/50 ML BAG IVPB (11:42)
--- NOTE | 2019-12-13 12:02 | PM.GYNPNOP ---
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 P: Transfer out of ICU. Oral pain meds. Regular diet. Continue moreno for now for I/O management. Time Spent With Patient Time with patient: 15 - 25 minutes PAINTER SUPERVISOR- PN:Subj Post-Op Subjective Date/time seen: 12/13/19 12:02 Interval history: Pain OK. Tolerating diet. On room air. Plan to send to floor today. Exam Narrative: Exam Narrative: AVSS I/O OK ABD soft, nontender, fundus firm. Incision c/d/i. EXT nontender PAINTER SUPERVISOR - PN: Obj Data Vital Signs Vital Signs: Vital Signs - 24 hr 12/12/19 12:17 12/12/19 13:17 12/12/19 14:00 Temperature 36.7 C 36.7 C Pulse Rate 86 103 H 95 Respiratory Rate 16 16 Blood Pressure 114/67 119/66 Pulse Oximetry 98 98 12/12/19 14:08 12/12/19 14:17 12/12/19 16:00 Temperature 36.5 C Pulse Rate 98 94 83 Respiratory Rate 17 18 16 Blood Pressure 111/67 112/65 111/67 Pulse Oximetry 98 98 99 12/12/19 18:00 12/12/19 20:00 12/12/19 22:00 Temperature 36.8 C Pulse Rate 92 85 94 Respiratory Rate 16 18 17 Blood Pressure 118/73 113/63 115/68 Pulse Oximetry 99 97 97 12/12/19 22:40 12/13/19 00:00 12/13/19 02:00 Temperature 37.0 C Pulse Rate 92 85 96 Respiratory Rate 22 H 12 12 Blood Pressure 111/63 108/65 Pulse Oximetry 98 96 97 12/13/19 02:30 12/13/19 04:00 12/13/19 05:42 Temperature 36.8 C Pulse Rate 86 87 91 Respiratory Rate 19 22 H 14 Blood Pressure 112/66 Pulse Oximetry 98 95 95 12/13/19 05:56 12/13/19 06:00 12/13/19 08:00 Temperature 36.8 C Pulse Rate 90 97 99 Respiratory Rate 14 16 Blood Pressure 112/72 126/68 126/74 Pulse Oximetry 94 97 12/13/19 10:00 Temperature Pulse Rate 103 H Respiratory Rate 18 Blood Pressure 112/76 Pulse Oximetry 94 Intake/Output Intake/Output: Intake & Output 12/10/19 12/11/19 12/12/19 12/13/19 23:59 23:59 23:59 23:59 Intake Total 3891 3743 3369 840 Output Total 2795 6478 3496 Balance 3895 3859 -[id number] -[id number] Meds/Results Medications: Active Medications Generic Name Dose Route Start Last Admin Trade Name Freq PRN Reason Stop Dose Admin Hydrocodone Bitart/Acetaminophen 1 tab 12/11/19 13:19 12/12/19 17:05 [place] 5-325 Mg PO 1 tab Q4H PRN Administration Pain Rated 4-6 Albuterol 2.5 mg 12/10/19 21:13 Albuterol Sulf Neb 2.5mg/0.5ml INHALATION Q6HRT PRN Wheezing Dextrose 12.5 gm 12/10/19 21:13 Dextrose 50% Syringe IV PUSH PRN PRN Hypoglycemia Protocol Fentanyl Citrate 50 mcg 12/11/19 13:19 12/12/19 18:18 Sublimaze IV PUSH 50 mcg Q2H PRN Administration Pain Rated 7-10 Glucagon 1 mg 12/10/19 21:13 Glucagon For Inj IM PRN PRN Hypoglycemia Protocol Glucose 15 gm 12/10/19 21:13 Glutose 15 PO PRN PRN Hypoglycemia Protocol Aztreonam 1 gm/ Dextrose 50 mls @ 100 mls/hr 12/10/19 22:00 12/13/19 05:35 IVPB Infused Q8HR JON Infusion Metronidazole 500 mg in 100 mls @ 100 mls/hr 12/11/19 00:00 12/13/19 06:04 Flagyl 500 Mg/Iso Soln 100 Ml IVPB Infused Q6HR JON Infusion Dextrose 1,000 mls @ 100 mls/hr 12/10/19 21:13 Dextrose 5% 1,000 Ml IVPB PRN PRN Hypoglycemia Protocol Ipratropium [place] 0.5 mg 12/10/19 21:13 Atrovent Neb INHALATION Q6HRT PRN Wheezing Pantoprazole Sodium 40 mg 12/11/19 09:00 12/13/19 08:46 Protonix Iv IV PUSH 40 mg QAM JON Administration Simethicone 80 mg 12/12/19 20:23 12/13/19 04:41 Mylicon PO 80 mg QID PRN Administration Gas Discomfort Radiology Results: ITS Impressions Abdomen X-Ray 12/10/19 20:59 IMPRESSION: 1. Lines and tubes in expected positions.
--- NOTE | 2019-12-13 14:18 | PM.IMPN ---
Progress Note: A&P Assessment and Plan (1) Respiratory acidosis: Code(s): E87.2 - Acidosis Status: Acute Assessment and Plan: Acute respiratory failure with hypercapnia, patient was intubated and placed on a ventilator. Able to be extubated 12/11.. The patient also had lactic acidosis which resolved with fluid challenge. Patient could have been in hypovolemic shock. Could also be early sepsis so covered with antibiotics also . (2) Postoperative hemorrhage: Status: Acute Assessment and Plan: Management per Dr. goetz. the patient had 6 units of packed red blood cells and 6 units of FFP. . Hgb at 6.4 and received 2 more units of packed RBC(8 total) Hgb 8.4 today (3) Advanced cirrhosis of liver: Code(s): K74.60 - Unspecified cirrhosis of liver Status: Acute Assessment and Plan: IV lasix given today and will restart oral lasix, spironolacton, lactulose , and nadolol.(1/2 of usual dose of nadolol initially, 10 mg with her recent shock) off IV fluids and do not want her to get fluid overloaded from her hepatic cirrhosis (4) Obstructive sleep apnea: Code(s): G47.33 - Obstructive sleep apnea (adult) (pediatric) Status: Chronic Assessment and Plan: CPAP (5) HTN (hypertension), malignant: Code(s): I10 - Essential (primary) hypertension Status: Acute Assessment and Plan: restart naldolol at 10 mg and restart her diurectics.. (6) H/O: hysterectomy: Code(s): Z90.710 - Acquired absence of both cervix and uterus Status: Acute Assessment and Plan: Postop care per Dr. Goetz. Subjective Date/time seen: 12/13/19 14:18 Interval history: Date of visit 12/12. 59-year-old white female with nonalcoholic cirrhosis had postop bleeding complication with total Vaginal hysterectomy and bilateral salpingectomy oophorectomy. She received 6 units of packed cells and 6 units of FFP and was stabilized after source of bleeding was found and cauterized. She was continue ventilation due to respiratory acidosis and initially low blood pressure treated with Levophed in the ICU. She is alert today with no complaints off vent and pressors about 48 hours. 2 more units of PRBcs given . tolerating diet now Exam Narrative: Exam Narrative: Blood pressure 122/82 pulse is 100 satting presently 94% on RA Lungs clear CV regular rate rhythm, slight tachy Abdomen is soft nontender Extremities without edema distal pulses 1+ Neuro alert pleasant cooperative no focal deficits Objective Data Vital Signs Vital Signs: Vital Signs - 24 hr 12/12/19 16:00 12/12/19 18:00 12/12/19 20:00 Temperature 36.8 C Pulse Rate 83 92 85 Respiratory Rate 16 16 18 Blood Pressure 111/67 118/73 113/63 Pulse Oximetry 99 99 97 12/12/19 22:00 12/12/19 22:40 12/13/19 00:00 Temperature 37.0 C Pulse Rate 94 92 85 Respiratory Rate 17 22 H 12 Blood Pressure 115/68 111/63 Pulse Oximetry 97 98 96 12/13/19 02:00 12/13/19 02:30 12/13/19 04:00 Temperature 36.8 C Pulse Rate 96 86 87 Respiratory Rate 12 19 22 H Blood Pressure 108/65 112/66 Pulse Oximetry 97 98 95 12/13/19 05:42 12/13/19 05:56 12/13/19 06:00 Temperature Pulse Rate 91 90 97 Respiratory Rate 14 14 Blood Pressure 112/72 126/68 Pulse Oximetry 95 94 12/13/19 08:00 12/13/19 10:00 12/13/19 12:00 Temperature 36.8 C 36.7 C Pulse Rate 89 108 H 101 H Respiratory Rate 16 18 16 Blood Pressure 126/74 112/76 122/82 Pulse Oximetry 97 94 94 Intake/Output Intake/Output: Intake & Output 12/10/19 12/11/19 12/12/19 12/13/19 23:59 23:59 23:59 23:59 Intake Total 3891 4044 4813 1230 Output Total 2584 3142 5080 Balance 2508 6084 -849 -8006 Meds/Results Medications: Active Medications Generic Name Dose Route Start Last Admin Trade Name Freq PRN Reason Stop Dose Admin Hydrocodone Bitart/Acetaminophen 1 tab 12/11/19 13:19 12/13/19 12:12 [place] 5-325 Mg PO 1 tab Q
[2019-12-13] MEDS: POTASSIUM PHOS,M-BASIC-D-BASIC 20 MMOL in SODIUM CHLORIDE 0.9% IV 250 ML 62.5 MMOL IVPB (15:57)
[2019-12-13] MEDS: SODIUM CHLORIDE 0.9% IV 1,000 ML 10 ML (15:58)
--- NOTE | 2019-12-13 16:17 | PC.NURSE ---
This patient, Hetal Curry, was received from ICU on 12/13/19 at 1430. Patient/family oriented to unit policies and routines
[2019-12-13] MEDS: FUROSEMIDE 20 MG TABLET PO (17:02)
[2019-12-13] MEDS: FLUTICASONE PROPIONATE 0.05% NA SPR 16 GM BTL (*BKC) 1 SPRAY NASAL (17:02)
--- NOTE | 2019-12-13 21:55 | PC.NURSE ---
After further research, found hospitalist note to restart nadalol at half normal dose which is 10mg.
[2019-12-13] MEDS: nadoloL 10 MG TABLET PO (22:01)
[2019-12-14] VITALS (10 sets, daily range): BP systolic 105–131; BP diastolic 60–75; PULSE 85–108; RESP 11–18; TEMP 36.4–37.2; O2SAT 94–99
[2019-12-14] MEDS: metroNIDAZOLE 500 MG/ISO 100ML 500 MG/100 ML BAG 100 MG IVPB ×2 (02:17→08:15)
[2019-12-14] MEDS: AZTREONAM 1 GM in DEXTROSE 5% IN WATER 50 ML IVPB (05:44)
[2019-12-14 05:51] LABS: Hematocrit 29.1 % (37.0-47.0); Hemoglobin 9.7 g/dL (12.0-15.0); Immature Platelet Fraction Pct 6.6 % (0.9-11.2); Mean Corpuscular HGB Conc 33.3 g/dl (32-36); Mean Corpuscular Hemoglobin 30.1 pg (26-34); Mean Corpuscular Volume 90.4 fl (80-100); Mean Platelet Volume 11.3 fl (7.4-10.4); Platelet Count Result 53 k/mm3 (150-375); Red Blood Count 3.22 M/mm3 (4.2-5.4); Red Cell Distribution Width 17.1 % (11.5-14.5); White Blood Count 4.6 K/mm3 (4.5-10.0)
[2019-12-14 06:02] LABS: Alanine Aminotransferase 63 U/L (4-35); Albumin Level 2.7 g/dL (3.5-5.1); Alkaline Phosphatase 63 U/L (38-126); Aspartate Amino Transferase 54 U/L (14-36); Bilirubin,Total 1.1 mg/dL (0.2-1.3); Blood Urea Nitrogen 8 mg/dL (7-17); Calcium 7.6 mg/dL (8.4-10.2); Carbon Dioxide 32 mmol/L (22-30); Chloride 96 mmol/L (98-107); Estimated CRCL calculation 116 ml/min; Estimated Glomerular Filt Rate > 60; Glucose 112 mg/dL (65-105); Magnesium 1.5 mg/dL (1.6-2.3); Phosphorus 2.8 mg/dL (2.5-4.5); Potassium 3.5 mmol/L (3.4-5.0); Sodium 135 mmol/L (137-145)
--- NOTE | 2019-12-14 08:48 | PM.GYNPNOP ---
INDUSTRIAL ENGINEERING - A/P Postoperative Procedures: Procedures Operation Date: 12/10/19 13:00 Actual Procedures Side Surgeon p Robotic Assisted Total Vaginal Hysterectomy, Bilateral Salpingo-Oopherectomy Bilateral Mariano James MD s Exploratory Laparotomy, CONTROL OF BLEEDING Mariano James MD A: POD#4, continuing to make improvement. P: Medical management per hospitalist staff. I appreciate their input! Continue the usual postoperative care otherwise. Time Spent With Patient Time with patient: less than 15 minutes INDUSTRIAL ENGINEERING- PN:Subj Post-Op Subjective Date/time seen: 12/14/19 08:48 Interval history: Pain OK today. Took a long walk in the halls. Tolerating diet. Exam Narrative: Exam Narrative: AVSS I/O OK ABD soft, nontender. Incisions c/d/i. Ecchymosis noted along vertical incision. EXT nontender INDUSTRIAL ENGINEERING - PN: Obj Data Vital Signs Vital Signs: Vital Signs - 24 hr 12/13/19 10:00 12/13/19 12:00 12/13/19 14:45 Temperature 36.7 C 36.7 C Pulse Rate 108 H 101 H 109 H Respiratory Rate 18 16 20 Blood Pressure 112/76 122/82 114/82 Pulse Oximetry 94 94 95 12/13/19 19:00 12/13/19 22:01 12/13/19 23:00 Temperature 37.2 C 36.9 C Pulse Rate 112 H 108 H 112 H Respiratory Rate 18 17 Blood Pressure 132/81 115/64 Pulse Oximetry 93 91 12/13/19 23:30 12/14/19 02:00 12/14/19 04:20 Temperature 36.4 C L Pulse Rate 95 87 Respiratory Rate 16 11 L Blood Pressure 105/65 Pulse Oximetry 90 95 95 12/14/19 04:52 Temperature Pulse Rate 95 Respiratory Rate 18 Blood Pressure Pulse Oximetry 95 Intake/Output Intake/Output: Intake & Output 12/11/19 12/12/19 12/13/19 12/14/19 23:59 23:59 23:59 23:59 Intake Total 4466 3397 4140 532 Output Total 4294 4791 0002 1250 Balance 2669 -308 -3490 -718 Meds/Results Medications: Active Medications Generic Name Dose Route Start Last Admin Trade Name Freq PRN Reason Stop Dose Admin Hydrocodone Bitart/Acetaminophen 1 tab 12/11/19 13:19 03/02/20 05:50 [place] 5-325 Mg PO 1 tab Q4H PRN Administration Pain Rated 4-6 Albuterol 2.5 mg 12/10/19 21:13 Albuterol Sulf Neb 2.5mg/0.5ml INHALATION Q6HRT PRN Wheezing Fluticasone Propionate 1 spray 12/13/19 17:00 12/13/19 17:02 Flonase 0.05% Nasal [place] NASAL 1 spray BID JON Administration Furosemide 20 mg 12/13/19 17:00 12/13/19 17:02 Lasix Tablet PO 20 mg BID JON Administration Aztreonam 1 gm/ Dextrose 50 mls @ 100 mls/hr 12/10/19 22:00 12/14/19 06:14 IVPB Infused Q8HR JON Infusion Metronidazole 500 mg in 100 mls @ 100 mls/hr 12/11/19 00:00 12/14/19 08:15 Flagyl 500 Mg/Iso Soln 100 Ml IVPB 100 mls/hr Q6HR JON Administration Dextrose 1,000 mls @ 100 mls/hr 12/10/19 21:13 Dextrose 5% 1,000 Ml IVPB PRN PRN Hypoglycemia Protocol Ipratropium [place] 0.5 mg 12/10/19 21:13 Atrovent Neb INHALATION Q6HRT PRN Wheezing Lactulose 10 gm 12/13/19 21:00 12/13/19 20:50 Lactulose PO Not Given HS JON Nadolol 10 mg 12/13/19 21:55 12/13/19 22:01 Corgard PO 10 mg HS JON Administration Pantoprazole Sodium 40 mg 12/14/19 09:00 Protonix PO DAILY [facility] Simethicone 80 mg 12/12/19 20:23 12/13/19 17:51 Mylicon PO 80 mg QID PRN Administration Gas Discomfort Sodium Chloride 10 ml 12/13/19 23:00 Central Line Flush IV PUSH Q8HR [facility] Spironolactone 150 mg 12/14/19 09:00 Aldactone PO DAILY [facility] Radiology Results: ITS Impressions Abdomen X-Ray 12/10/19 20:59 IMPRESSION: 1. Lines and tubes in expected positions. 2. Small lung volumes with bilateral airspace disease which could represent atelectasis and/or pneumonia. 3. Likely small left pleural effusion. 4. Postoperative changes in the abdomen with normal bowel gas pattern. Chest X-Ray 12/13/19 07:34 IMPRESSION: 1. Airspace opacities in the perihilar regions and lower lung zones with worsening on
--- NOTE | 2019-12-14 09:05 | PCDIET ---
Nutrition Follow-Up Complete: Nutrition Diagnosis: Inadequate oral intake related to oral intubation as evidenced by NPO status. Nutrition Goal: Patient to meet estimated nutritional needs. Goal in progress. Patient extubated, diet advanced, and average intakes have been 82% of recorded meals on regular diet. Last recorded weight is 135 kg which is increased from last review. I/O positive on admission due to blood products, but I/O now negative. Bowel Motility: No documented bowel movements. Labs Reviewed: Glu (112), Mg (1.5), Na (135), Alb (2.7), Nelda Ca (8.64) Meds Noted: Albuterol, Lasix, Lactulose, Flagyl, Protonix, Aztreonam Additional Notes: Patient received magnesium sulfate IV on 12/13/19; recommend continued replacement, as medically appropriate. Abdomen with incision; no pressure sores. Recommend continuing regular diet, although patient may benefit from heart healthy diet in the termite treater. Nutrition Monitoring and Evaluation: Follow up every 5 days.
[2019-12-14] MEDS: FLUTICASONE PROPIONATE 0.05% NA SPR 16 GM BTL (*BKC) 1 SPRAY NASAL ×2 (09:14→17:21)
[2019-12-14] MEDS: FUROSEMIDE 20 MG TABLET PO ×2 (09:15→17:20)
[2019-12-14] MEDS: SIMETHICONE 80 MG TAB.CHEW PO ×2 (09:15→19:10)
[2019-12-14] MEDS: PANTOPRAZOLE 40 MG TABLET PO (09:15)
[2019-12-14] MEDS: SPIRONOLACTONE 50 MG TABLET 150 MG PO (09:16)
[2019-12-14] MEDS: POTASSIUM CHLORIDE 20 MEQ TABLET 40 MEQ PO (10:18)
--- NOTE | 2019-12-14 12:02 | PM.IMPN ---
Progress Note: A&P Assessment and Plan (1) Respiratory acidosis: Code(s): E87.2 - Acidosis Status: Acute Assessment and Plan: Acute respiratory failure with hypercapnia, patient was intubated and placed on a ventilator. Able to be extubated 12/11.. The patient also had lactic acidosis which resolved with fluid challenge. Patient could have been in hypovolemic shock. Could also be early sepsis so covered with antibiotics which can d/c now because no source of infection and lactic acidosis secondary to hypovolemia . (2) Postoperative hemorrhage: Status: Acute Assessment and Plan: Management per Dr. goetz. the patient had 6 units of packed red blood cells and 6 units of FFP. . Hgb at 6.4 and received 2 more units of packed RBC(8 total) Hgb 9.7 today (3) Advanced cirrhosis of liver: Code(s): K74.60 - Unspecified cirrhosis of liver Status: Acute Assessment and Plan: IV lasix given 12/12 and restarted oral lasix, spironolacton, lactulose , and nadolol.(1/2 of usual dose of nadolol initially, 10 mg with her recent shock) off IV fluids and appears euvolemic, will d/c moreno too (4) Obstructive sleep apnea: Code(s): G47.33 - Obstructive sleep apnea (adult) (pediatric) Status: Chronic Assessment and Plan: CPAP (5) HTN (hypertension), malignant: Code(s): I10 - Essential (primary) hypertension Status: Acute Assessment and Plan: restarted naldolol at 10 mg hs 12/12 and restarted her diurectics.today. pulse slower and bp good. (6) H/O: hysterectomy: Code(s): Z90.710 - Acquired absence of both cervix and uterus Status: Acute Assessment and Plan: Postop care per Dr. Goetz. doing well Discussed case with Dr Goetz and from a medical standpoint ok to d/c home 12/14. Would hold her azathioprine until healed probably 3-4 weeks. Resume all of her usual hepatic meds on d/c . Will sign off and call for any further questions or concerns. Thanks Subjective Date/time seen: 12/14/19 12:02 Interval history: Date of visit 12/13. 59-year-old white female with nonalcoholic cirrhosis had postop bleeding complication with total Vaginal hysterectomy and bilateral salpingectomy oophorectomy. She received 6 units of packed cells and 6 units of FFP and was stabilized after source of bleeding was found and cauterized. She had continued ventilation due to respiratory acidosis and initially low blood pressure treated with Levophed in the ICU. She is alert today with no complaints off vent and pressors 72 hours. 2 more units of PRBcs given . tolerating diet now. Walkded in [place] today Exam Narrative: Exam Narrative: Blood pressure 106/66 pulse is 86 satting presently 94% on RA Lungs clear CV regular rate rhythm, Abdomen is soft nontender good bs Extremities without edema distal pulses 1+ Neuro alert pleasant cooperative no focal deficits Objective Data Vital Signs Vital Signs: Vital Signs - 24 hr 12/13/19 14:45 12/13/19 19:00 12/13/19 22:01 Temperature 36.7 C 37.2 C Pulse Rate 109 H 112 H 108 H Respiratory Rate 20 18 Blood Pressure 114/82 132/81 Pulse Oximetry 95 93 12/13/19 23:00 12/13/19 23:30 12/14/19 02:00 Temperature 36.9 C Pulse Rate 112 H 95 Respiratory Rate 17 16 Blood Pressure 115/64 Pulse Oximetry 91 90 95 12/14/19 04:20 12/14/19 04:52 Temperature 36.4 C L Pulse Rate 87 95 Respiratory Rate 11 L 18 Blood Pressure 105/65 Pulse Oximetry 95 95 Intake/Output Intake/Output: Intake & Output 12/11/19 12/12/19 12/13/19 12/14/19 23:59 23:59 23:59 23:59 Intake Total 3747 5241 2660 632 Output Total 2385 0110 6150 1250 Balance 2669 -308 -3490 -618 Meds/Results Medications: Active Medications Generic Name Dose Route Start Last Admin Trade Name Freq PRN Reason Stop Dose Admin Hydrocodone Bitart/Acetaminophen 1 tab 12/11/19 13:19 12/14/19 10:26 [place] 5-325 Mg PO 1 tab Q4H PRN Admi
[2019-12-14] MEDS: LACTULOSE 20 GM/30 ML UDC 10 GM PO (21:12)
[2019-12-14] MEDS: nadoloL 10 MG TABLET PO (21:12)
[2019-12-15] VITALS: BP 110/81; PULSE 105; RESP 17; TEMP 37.1; O2SAT 93
[2019-12-15 00:34] VITALS: PULSE 107; RESP 20; O2SAT 97
[2019-12-15 05:43] LABS: Hematocrit 31.7 % (37.0-47.0); Hemoglobin 10.4 g/dL (12.0-15.0); Immature Platelet Fraction Pct 5.9 % (0.9-11.2); Mean Corpuscular HGB Conc 32.8 g/dl (32-36); Mean Corpuscular Hemoglobin 29.4 pg (26-34); Mean Corpuscular Volume 89.5 fl (80-100); Mean Platelet Volume 11.1 fl (7.4-10.4); Platelet Count Result 67 k/mm3 (150-375); Red Blood Count 3.54 M/mm3 (4.2-5.4); Red Cell Distribution Width 17.7 % (11.5-14.5); White Blood Count 6.9 K/mm3 (4.5-10.0)
[2019-12-15 05:49] LABS: Alanine Aminotransferase 51 U/L (4-35); Albumin Level 2.8 g/dL (3.5-5.1); Alkaline Phosphatase 62 U/L (38-126); Aspartate Amino Transferase 39 U/L (14-36); Bilirubin,Total 1.3 mg/dL (0.2-1.3); Blood Urea Nitrogen 6 mg/dL (7-17); Calcium 8.3 mg/dL (8.4-10.2); Carbon Dioxide 31 mmol/L (22-30); Chloride 97 mmol/L (98-107); Estimated CRCL calculation 136 ml/min; Estimated Glomerular Filt Rate > 60; Glucose 130 mg/dL (65-105); Potassium 3.6 mmol/L (3.4-5.0); Sodium 130 mmol/L (137-145)
[2019-12-15 08:10] VITALS: BP 101/68; PULSE 100; RESP 18; TEMP 36.5; O2SAT 95
--- NOTE | 2019-12-15 08:45 | PC.NURSE ---
PT introductions made and plan of care discussed per post op hysterectomy, pain management, daily care activities and pending discharge to home. PT verbalized understanding of such care.
--- NOTE | 2019-12-15 08:45 | PM.GYNPNOP ---
DOOR FURRING INSTALLER - A/P Postoperative Procedures: Procedures Operation Date: 12/10/19 13:00 Actual Procedures Side Surgeon p Robotic Assisted Total Vaginal Hysterectomy, Bilateral Salpingo-Oopherectomy Bilateral Mariano James MD s Exploratory Laparotomy, CONTROL OF BLEEDING Mariano James MD A: POD#5, doing well. P: Home today to f/u office for staple removal on 12/21/19. Time Spent With Patient Time with patient: less than 15 minutes DOOR FURRING INSTALLER- PN:Subj Post-Op Subjective Date/time seen: 12/15/19 08:45 Interval history: Pain OK. Would like to go home. I spoke with the hospitalist and he is in favor of sending the patient home today. Exam Narrative: Exam Narrative: AVSS ABD soft, nontender. Incisions c/d/i. EXT nontender DOOR FURRING INSTALLER - PN: Obj Data Vital Signs Vital Signs: Vital Signs - 24 hr 12/14/19 14:45 12/14/19 17:29 12/14/19 19:10 Temperature 36.8 C 37.2 C 36.8 C Pulse Rate 93 96 99 Respiratory Rate 16 17 Blood Pressure 116/72 114/75 118/60 Pulse Oximetry 96 95 99 12/14/19 21:12 12/14/19 21:15 12/15/19 00:00 Temperature 36.7 C 37.1 C Pulse Rate 108 H 108 H 105 H Respiratory Rate 18 17 Blood Pressure 131/74 110/81 Pulse Oximetry 99 93 12/15/19 00:34 12/15/19 08:10 Temperature 36.5 C Pulse Rate 107 H 100 Respiratory Rate 20 18 Blood Pressure 101/68 Pulse Oximetry 97 95 Intake/Output Intake/Output: Intake & Output 12/12/19 12/13/19 12/14/19 12/15/19 23:59 23:59 23:59 23:59 Intake Total 3367 2660 4523 350 Output Total 3672 6132 4100 600 Balance -308 -3490 423 -250 Meds/Results Medications: Active Medications Generic Name Dose Route Start Last Admin Trade Name Freq PRN Reason Stop Dose Admin Hydrocodone Bitart/Acetaminophen 1 tab 12/11/19 13:19 12/15/19 09:46 [place] 5-325 Mg PO 1 tab Q4H PRN Administration Pain Rated 4-6 Albuterol 2.5 mg 12/10/19 21:13 Albuterol Sulf Neb 2.5mg/0.5ml INHALATION Q6HRT PRN Wheezing Fluticasone Propionate 1 spray 12/13/19 17:00 12/15/19 09:45 Flonase 0.05% Nasal [place] NASAL 1 spray BID JON Administration Furosemide 20 mg 12/13/19 17:00 12/15/19 09:43 Lasix Tablet PO 20 mg BID JON Administration Dextrose 1,000 mls @ 100 mls/hr 12/10/19 21:13 Dextrose 5% 1,000 Ml IVPB PRN PRN Hypoglycemia Protocol Ipratropium [place] 0.5 mg 12/10/19 21:13 Atrovent Neb INHALATION Q6HRT PRN Wheezing Lactulose 10 gm 12/13/19 21:00 12/15/19 09:45 Lactulose PO 10 gm HS JON Administration Nadolol 10 mg 12/13/19 21:55 12/14/19 21:12 Corgard PO 10 mg HS JON Administration Pantoprazole Sodium 40 mg 12/14/19 09:00 12/15/19 09:43 Protonix PO 40 mg DAILY JON Administration Simethicone 80 mg 12/12/19 20:23 12/15/19 09:47 Mylicon PO 80 mg QID PRN Administration Gas Discomfort Spironolactone 150 mg 12/14/19 09:00 12/15/19 09:43 Aldactone PO 150 mg DAILY JON Administration Radiology Results: ITS Impressions Abdomen X-Ray 12/10/19 20:59 IMPRESSION: 1. Lines and tubes in expected positions. 2. Small lung volumes with bilateral airspace disease which could represent atelectasis and/or pneumonia. 3. Likely small left pleural effusion. 4. Postoperative changes in the abdomen with normal bowel gas pattern. Chest X-Ray 12/13/19 07:34 IMPRESSION: 1. Airspace opacities in the perihilar regions and lower lung zones with worsening on the right, consistent with atelectasis versus pneumonia. 2. Stable small left pleural effusion. 3. Cardiomegaly. Labs CBC & Chem 7: 12/15/19 05:29 12/15/19 05:29 Labs: Laboratory Results - last 24 hr 12/15/19 12/15/19 05:29 05:29 WBC 6.9 RBC 3.54 L Hgb 10.4 L Hct 31.7 L MCV 89.5 MCH 29.4 MCHC 32.8 RDW 17.7 H Plt Count 67 L MPV 11.1 H % Immature Plt Fraction 5.9 Sodium 130 L Potassium 3.6 Chloride 97 L Car
[2019-12-15] MEDS: PANTOPRAZOLE 40 MG TABLET PO (09:43)
[2019-12-15] MEDS: FUROSEMIDE 20 MG TABLET PO (09:43)
[2019-12-15] MEDS: SPIRONOLACTONE 50 MG TABLET 150 MG PO (09:43)
[2019-12-15] MEDS: FLUTICASONE PROPIONATE 0.05% NA SPR 16 GM BTL (*BKC) 1 SPRAY NASAL (09:45)
[2019-12-15] MEDS: LACTULOSE 20 GM/30 ML UDC 10 GM PO (09:45)
[2019-12-15] MEDS: SIMETHICONE 80 MG TAB.CHEW PO (09:47)
--- NOTE | 2019-12-15 12:09 | PM.DS ---
DS: Diagnosis Admitting Diagnosis Admitting Diagnosis: Postmenopausal bleeding DS: Summary Hospital Course Reason for hospitalization: Postmenopausal bleeding Hospital Course: She was admitted on the date of scheduled surgery. She had a robotic-assisted TVH BSO. Postoperatively, she had a bleed and required a laparotomy. The bleeding vessel was ligated. She was sent to the intensive care unit initially. Subsequently, she did well and was able to move to the regular floor. She tolerated a regular diet, voided, ambulated, and had good pain control. She was ready to go home on postoperative day 5. She received a total of 8 units of PRBC and 6 units of FFP. Her hemoglobin on the day of discharge was 10.4. DS: Data Data Completed and Pending Completed studies during hospitalization: Pending at discharge 12/10/19 14:37 Surgical [PTH] Routine Labs on day of discharge: Labs from last 24 hours 12/15/19 12/15/19 05:29 05:29 WBC 6.9 RBC 3.54 L Hgb 10.4 L Hct 31.7 L MCV 89.5 MCH 29.4 MCHC 32.8 RDW 17.7 H Plt Count 67 L MPV 11.1 H % Immature Plt Fraction 5.9 Sodium 130 L Potassium 3.6 Chloride 97 L Carbon Dioxide 31 H BUN 6 L Creatinine 0.50 L Estim Creat Clear Calc 136 Estimated GFR > 60 Glucose 130 H Calcium 8.3 L Total Bilirubin 1.3 AST 39 H ALT 51 H Alkaline Phosphatase 62 Total Protein 5.0 L Albumin 2.8 L Discharge Plan Discharge Attending physician on discharge: Mariano James Consulting providers: Candice Vega ; Henry Simmons Discharging Clinician: Mariano James Patient Disposition: Home, Self-Care Activity: may shower, may drive after 2 weeks and pelvic rest Diet: regular Wound Care Instructions: incision open to air Discharge Instructions: Call or return if temperature above 100.4? F, increased abdominal pain, increased vaginal bleeding or any new problems. Stand Alone Forms: General Discharge Instructions Follow-up/Referrals: Mariano James MD [Physician] - (Follow up 12/21/19 in office for staple removal) Discharge Medications: New hydrocodone-acetaminophen [[place]] 5-325 mg tablet 1 - 2 tablet PO Q6H PRN (Reason: pain) Qty: 30 RF: 0 Continued cholecalciferol (vitamin D3) [Vitamin D3] 2,000 unit tablet 2,000 unit PO DAILY RF: 0 fluticasone propionate [Flonase Allergy Relief] 50 mcg/actuation spray,suspension 1 spray NASAL BID Qty: 15.8 RF: 0 lactulose 10 gram/15 mL solution 15 ml PO HS RF: 0 cyclobenzaprine 10 mg tablet 10 mg PO PRN PRN (Reason: Muscle Spasm) RF: 0 nadolol 20 mg tablet 20 mg PO HS RF: 0 pantoprazole 40 mg tablet,delayed release (DR/EC) 40 mg PO DAILY RF: 0 furosemide 20 mg tablet 20 mg PO BID RF: 0 spironolactone 50 mg tablet 150 mg PO DAILY RF: 0 Held azathioprine 50 mg tablet 50 mg PO DAILY RF: 0 Hold Instructions: Resume on 01/13/20. Discontinued hydrocodone-acetaminophen 5-325 mg tablet 1 tablet PO PRN PRN (Reason: Pain) RF: 0 tramadol 50 mg tablet 50 mg PO PRN PRN (Reason: pain) RF: 0 Date of admission: 12/10/19 20:15 Primary Care Provider: Zoran Nix Admitting Provider: Mariano James Attending physician on admission: Mariano James Quality VTE Prophylaxis VTE prophylaxis: mechanical ordered
--- NOTE | 2019-12-15 13:00 | PC.NURSE ---
Pt given discharge instructions per protocol and verbalized understanding of such care.
--- NOTE | 2019-12-15 13:32 | PC.NURSE ---
PT discharged to home via wheelchair accompanied by significant other and taken to waiting car. Follow up appts confirmed
== END 2019-12-15 13:32 | disposition home or self-care (01) | DRG 742 ==
LOC: ANHOB2 12-15 12:10 → ANHICU 12-16 09:38 → ANHOB2 12-16 09:38
PROVIDERS: Internal Medicine; Nurse Practitioner; Admitting Provider Obstetrics & Gynecology; PCP Family Medicine; Visit Provider Obstetrics & Gynecology
PROC: 0UT9FZZ Resection of Uterus, Via Natural or Artificial Opening With Percutaneous Endoscopic Assistance (ICD-10-PCS; principal; 2019-12-10 13:00)
PROC: 0UT9FZZ Resection of Uterus, Via Natural or Artificial Opening With Percutaneous Endoscopic Assistance (ICD-10-PCS; CPT 49000; 2019-12-10 13:00)
DX: N95.0 Postmenopausal bleeding (principal); K66.1 Hemoperitoneum; J95.821 Acute postprocedural respiratory failure; D65 Disseminated intravascular coagulation [defibrination syndrome]; R57.1 Hypovolemic shock; N99.820 Postprocedural hemorrhage of a genitourinary system organ or structure following a genitourinary system procedure; Z68.43 Body mass index [BMI] 50.0-59.9, adult; E87.2 Acidosis; I95.81 Postprocedural hypotension; K75.4 Autoimmune hepatitis; K21.9 Gastro-esophageal reflux disease without esophagitis; G47.33 Obstructive sleep apnea (adult) (pediatric); E66.01 Morbid (severe) obesity due to excess calories; K74.60 Unspecified cirrhosis of liver; M85.80 Other specified disorders of bone density and structure, unspecified site; Z90.49 Acquired absence of other specified parts of digestive tract
CPT/HCPCS: 36415; 36430; 36600; 71045; 80048; 80053; 82140; 82375; 82805; 83050; 83605; 83735; 84100; 85014; 85018; 85027; 85055; 85384; 85610; 85730; 86850; 86900; 86901; 86922; 87081; 88307; 94002; 94660; 97110; 97116; 97161; 97165; 97535; A9270; C9113; J0171; J0330; J1100; J1170; J1741; J1940; J2250; J2370; J2405; J2704; J2710; J3010; J3430; J3475; J7030; J7050; J7120; P9016; P9017; P9047

== ENCOUNTER 2020-05-06 13:57 | Outpatient (CLI) | payer OTHER, SELFPAY ==
--- NOTE | ~2020-05-06 | MR_ITS ---
EXAMINATION: MR lumbar spine wo [facility] EXAM DATE: 05/06/2020 15:15 INDICATION: Lumbar radiculopathy. TECHNIQUE: Multi-sequential, multiplanar MR images of the lumbar spine were obtained without contrast . Sagittal T1, T2, T2 fat saturation images. Axial T2 weighted images. There is no prior study for comparison. FINDINGS: There is 2 mm anterolisthesis L5 on S1, with bilateral L5 spondylolysis suspected. Mild to moderate disc disease from L3 through S1. Vertebral body heights are maintained. The conus medullaris terminates at the L1/2 level and has normal signal intensity and morphology. There is small hemangio ma in the T11 vertebral body. There are no suspicious marrow signal abnormalities. Paraspinal soft ti ssue is unremarkable. Level by level evaluation: T12-L1: Disc does not extend beyond the endplate margin. Facet arthropathy: Mild. Neural foraminal stenosis: No stenosis. Central canal stenosis: No stenosis. L1-L2: Disc does not extend beyond the endplate margin. Facet arthropathy: Mild. Neural foraminal stenosis: No stenosis. Central canal stenosis: No stenosis. L2-L3: There is a minimal diffuse disc bulge. Facet arthropathy: Mild to moderate. Neural foraminal stenosis: Minimal bilateral. Central canal stenosis: No stenosis. L3-L4: There is a mild diffuse disc bulge. Facet arthropathy: Mild. Neural foraminal stenosis: Minimal bilateral. Central canal stenosis: No stenosis. L4-L5: There is a mild diffuse disc bulge. Facet arthropathy: Mild. Neural foraminal stenosis: Mild bilateral. Central canal stenosis: No stenosis. L5-S1: There is a mild diffuse disc bulge. Facet arthropathy: Mild to moderate. Neural foraminal stenosis: Mild to moderate left. Central canal stenosis: No stenosis. IMPRESSION: 1. Probable bilateral L5 spondylolysis with minimal anterolisthesis L5 on S1. 2. Mild to moderate lower lumbar spondylosis. 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
== END 2020-05-06 13:58 ==
LOC: MICIMG 13:58
PROVIDERS: Visit Provider Nurse Practitioner Family
DX: M47.26 Other spondylosis with radiculopathy, lumbar region (principal)
CPT/HCPCS: 72148

== ENCOUNTER 2020-06-27 11:21 | Emergency (ER) | payer OTHER, SELFPAY ==
--- NOTE | ~2020-06-27 | XR_ITS ---
EXAMINATION: XR knee RT min 4V EXAM DATE: 06/27/2020 11:56 INDICATION: Initial encounter following injury, with pain of the right knee pain anteriorly after in jury, initial encounter. TECHNIQUE: Right knee frontal, crosstable lateral, orthogonal oblique projections for interpretation . There is no prior study for comparison. FINDINGS: No evidence osteochondral defect or joint body in the right knee joint. There are no acut e fractures or dislocations identified. There is no subcutaneous gas. Small joint effusion. There are no radiopaque foreign bodies. Mild patellofemoral and medial tibiofemoral compartment primary os teoarthritis. IMPRESSION: 1. XR knee RT min 4V exam without acute osseous findings. 2. Small joint effusion. 3. Mild osteoarthritis. 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
[2020-06-27 11:27] VITALS: BP 130/86; PULSE 84; RESP 18; TEMP 36.7; O2SAT 98
--- NOTE | 2020-06-27 11:33 | ED.EXTPRO ---
HPI - Extremity Problem General Chief complaint: Extremity Problem,Nontraumatic Stated complaint: right knee pain Time Seen by Provider: 06/27/20 11:33 Source: patient and RN notes reviewed History of Present Illness HPI Narrative: Patient is a 60-year-old female who presents the urgent care with complaints of right knee pain after a fall. Patient states that she fell over a little lip in the floor on 18 June, with her right knee taking the brunt of the fall. Patient states the fall occurred on a kitchen floor. Denies any use of [id number] medication for her pain. States that her pain exacerbates with ambulating and weightbearing. Patient states that she feels something is floating in the right knee . Denies any other acute injuries or hitting her head during the fall. No other acute complaints. No acute distress noted. Patient aware of the plan of care. Some parts of this dictation were generated by voice recognition software and may contain typographical and/or grammatical inaccuracies. Related Data Home Medications Medication Instructions Recorded Confirmed azathioprine 50 mg PO DAILY 09/08/19 06/27/20 furosemide 20 mg PO BID 09/08/19 03/15/20 nadolol 20 mg PO HS 09/08/19 03/15/20 pantoprazole 40 mg PO DAILY 09/08/19 03/15/20 spironolactone 150 mg PO DAILY 09/08/19 03/15/20 cyclobenzaprine 10 mg PO PRN PRN 11/30/19 06/27/20 cholecalciferol (vitamin D3) 50 2,000 unit PO DAILY 01/12/20 06/27/20 mcg (2,000 unit) tablet Allergies Allergy/AdvReac Type Severity Reaction Status Date / Time Penicillins Allergy Intermediate Rash Verified 12/10/19 11:32 Sulfa (Sulfonamide Allergy Unknown Dermatitis, Verified 12/10/19 11:32 Antibiotics) RASH TANGERINES Allergy Severe THROAT Uncoded 12/10/19 11:32 SWELLING Review of Systems Review of Systems: Narrative: CONSTITUTIONAL: Denies fever, chills, or sweats. EYES: Denies visual changes, redness, or discharge. ENT: Denies rhinorrhea, congestion, sore throat, or otalgia. CARDIOVASCULAR: Denies chest pain, palpitations, or edema. RESPIRATORY: Denies cough or dyspnea. GASTROINTESTINAL: Denies abdominal pain, nausea, vomiting, or diarrhea. GENITOURINARY: Denies dysuria or hematuria. SKIN: Denies rash or itching. MUSCULOSKELETAL: Reports of right knee pain NEUROLOGIC: Denies headache, numbness, or weakness. All other systems reviewed are negative, except as documented in HPI. 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 She is to gleason who is the durable power assistant prosecuting attorney for healthcare. She is the [employer]. Smoking status: Never smoker Alcohol intake: current Substance use: never Substance use type: does not use Gender identity (if verbalized by the patient): Female Spiritual care concerns: No Agree to blood products: Yes Comments At the time of my signature, I reviewed and agree with the nursing past medical, surgical, social, and family history. There is no relevant family history pertinent to the patient complain
== END 2020-06-27 12:18 | disposition home or self-care (01) ==
PROVIDERS: Emergency Provider Nurse Practitioner Family; PCP Family Medicine
DX: M25.461 Effusion, right knee (principal); M17.11 Unilateral primary osteoarthritis, right knee; K74.60 Unspecified cirrhosis of liver; K75.4 Autoimmune hepatitis; K21.9 Gastro-esophageal reflux disease without esophagitis; I10 Essential (primary) hypertension; G47.33 Obstructive sleep apnea (adult) (pediatric); M85.80 Other specified disorders of bone density and structure, unspecified site; E66.01 Morbid (severe) obesity due to excess calories; Z68.42 Body mass index [BMI] 45.0-49.9, adult
CPT/HCPCS: 73564; 99213; G0463

== ENCOUNTER 2021-04-13 15:52 | Emergency (ER) | payer OTHER, SELFPAY ==
--- NOTE | ~2021-04-13 | XR_ITS ---
EXAMINATION: XR knee RT min 4V EXAM DATE: 04/13/2021 16:48 INDICATION: FALL this p.m.; numbness medial Rt knee. Initial encounter. TECHNIQUE: Right knee frontal, crosstable lateral, orthogonal oblique projections for interpretation . Comparison is made to prior examination from 06/27/2020. FINDINGS: No evidence osteochondral defect or joint body in the right knee joint. No joint effusio n. There are no acute fractures or dislocations identified. There is no subcutaneous gas. The soft tissue is unremarkable. There are no radiopaque foreign bodies. There is mild primary osteoarthrit is. IMPRESSION: 1. XR knee RT min 4V exam without acute osseous findings. 2. Mild osteoarthritis. 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
[2021-04-13 16:01] VITALS: BP 122/81; PULSE 81; RESP 12; TEMP 37.3; O2SAT 100
[2021-04-13 16:05] VITALS: BP 122/81; PULSE 81; RESP 12; TEMP 37.3; O2SAT 100
--- NOTE | 2021-04-13 16:58 | ED.LOWEXIN ---
HPI - Extremity Injury (Lower) General Chief Complaint: Extremity Injury, Lower Stated Complaint: fall/rt knee injury Time Seen by Provider: 04/13/21 16:20 Source: patient Mode of arrival: ambulatory Limitations: no limitations History of Present Illness HPI Narrative: Hetal Curry is a 60 yo female with a PMH of admission mediated hepatitis, liver cirrhosis ,varices, hypertension, portal hypertension ,GERD, [facility] a fall at work 315 as she is leaving the building onto her right knee she hit her left knee but it was protected by her purse. She states she tripped over carpeting in the [employer] work area. Above her left knee and across to her right knee is ecchymosis, she has limitation of motion on the right Related Data Home Medications Medication Instructions Recorded Confirmed azathioprine 50 mg PO DAILY 09/08/19 04/13/21 furosemide 20 mg PO BID 09/08/19 04/13/21 nadolol 20 mg PO HS 09/08/19 04/13/21 pantoprazole 40 mg PO DAILY 09/08/19 04/13/21 spironolactone 150 mg PO DAILY 09/08/19 04/13/21 cyclobenzaprine 10 mg PO PRN PRN 11/30/19 04/13/21 cholecalciferol (vitamin D3) 50 2,000 unit PO DAILY 01/12/20 04/13/21 mcg (2,000 unit) tablet Allergies Allergy/AdvReac Type Severity Reaction Status Date / Time Penicillins Allergy Intermediate Rash Verified 04/13/21 16:04 Sulfa (Sulfonamide Allergy Unknown Dermatitis, Verified 04/13/21 16:04 Antibiotics) RASH TANGERINES Allergy Severe THROAT Uncoded 04/13/21 16:04 SWELLING Review of Systems Review of Systems: Narrative: CONSTITUTIONAL: Denies fever, chills, sweats. EYES: Denies visual changes, redness, discharge. ENT: Denies rhinorrhea, congestion, sore throat, otalgia. CARDIOVASCULAR: Denies chest pain, palpitations, edema. RESPIRATORY: Denies dyspnea, wheezing, cough GASTROINTESTINAL: Denies abdominal pain, nausea, vomiting, diarrhea. GENITOURINARY: Denies dysuria, hematuria, abnormal discharge SKIN: Denies rash or itching. NEUROLOGIC: Denies numbness, or focal weakness. PSYCHIATRIC: Denies anxiety or depression. Right knee bruising and pain with limited range of motion. Left knee bruising above the knee but motion is normal [facility] Past Medical History Medical History Abdominal pain Abnormal fasting glucose Abnormal pelvic ultrasound Acute respiratory failure following trauma and surgery Advanced cirrhosis of liver Anemia Arrhythmia Autoimmune hepatitis BMI 45.0-49.9, adult Bulging lumbar disc Chronic bilateral low back pain without sciatica Chronic constipation Chronic low back pain with bilateral sciatica Chronic pain back Chronic pain of right knee Chronic thoracic back pain Degenerative arthritis of knee, bilateral DIC (disseminated intravascular coagulation) Esophageal varices Folic acid deficiency GERD (gastroesophageal reflux disease) Hemoglobin A1c less than 7.0% A1c 6.2 on 09/12/20 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 HTN (hypertension), malignant Low magnesium level Obstructive sleep apnea Osteopenia after menopause Portal hypertension Postmenopausal bleeding Postoperative hemorrhage Respiratory acidosis Shock Surgical History Surgical History H/O dilation and curettage (~2018) H/O: hysterectomy History of breast lump/mass excision Hx of cholecystectomy S/P exploratory laparotomy Status post surgical removal of neoplasm of skin Left arm Family History Family History Father Carcinoma of colon, Onset Age: 76 Sibling Patient's sister is in good health Grandparent Family history of cardiovascular disease, Onset Age: 95 Carcinoma of colon Mother Acute myocardial infarction, Onset Age: 74 Cerebrovascular accident Social History Social History
== END 2021-04-13 17:28 | disposition home or self-care (01) ==
PROVIDERS: Emergency Provider Nurse Practitioner; PCP Family Medicine
DX: S80.01XA Contusion of right knee, initial encounter (principal); W18.09XA Striking against other object with subsequent fall, initial encounter; Y99.0 Civilian activity done for income or pay; K74.60 Unspecified cirrhosis of liver; I10 Essential (primary) hypertension; K21.9 Gastro-esophageal reflux disease without esophagitis; K75.4 Autoimmune hepatitis; M17.0 Bilateral primary osteoarthritis of knee; G47.33 Obstructive sleep apnea (adult) (pediatric)
CPT/HCPCS: 73564; 99213; G0463; L1830

== ENCOUNTER 2021-06-22 11:00 | Outpatient (CLI) | payer OTHER, SELFPAY ==
--- NOTE | ~2021-06-22 | US_ITS ---
EXAMINATION: US venous doppler LE RT EXAM DATE: 06/22/2021 11:38 INDICATION: Right lower extremity pain. TECHNIQUE: Multiple grayscale, color flow and Doppler images of the right lower extremity deep venous system were obtained and reviewed. There is no prior study for comparison. FINDINGS: The right common femoral, femoral and profunda veins demonstrate normal color flow, respira tory variation, augmentation and compressibility. Compressibility, color flow confirmed within the r ight popliteal, posterior tibial, peroneal, and greater saphenous veins. IMPRESSION: 1. No right lower extremity deep venous thrombosis. 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
== END 2021-06-22 11:01 | disposition home or self-care (01) ==
LOC: ANHIMG 11:01
PROVIDERS: PCP Family Medicine; Visit Provider Orthopaedic Surgery
DX: M79.604 Pain in right leg (principal)
CPT/HCPCS: 93971

== ENCOUNTER → 2021-07-28 09:52 | Outpatient (CLI) | payer OTHER, SELFPAY ==
--- NOTE | ~2021-07-28 | US_ITS ---
EXAMINATION: US right upper quadrant EXAM DATE: 07/28/2021 10:31 INDICATION: Cirrhosis. TECHNIQUE: Multiple grayscale and Doppler images of the abdomen right upper quadrant were obtained (madhavi y a technologist who performed the scan) and subsequently reviewed. Comparison is made to prior exami nation from 11/27/2019. FINDINGS: The pancreatic head and body are normal in appearance. The pancreatic tail is not visualized. Diffu sely heterogeneous thyroid echotexture and mild liver surface nodularity, cirrhosis. There are no fo obi liver lesions identified. There is no evidence of intrahepatic biliary duct dilation. Portal v enous flow was seen in the hepatopedal, normal direction and has normal Doppler waveform. No right-s ided hydronephrosis. Common bile duct measures 3-4 mm, which is normal. The gallbladder fossa is unremarkable. IMPRESSION: Cirrhosis. Reviewed, dictated and finalized at location B. IMPRESSION: Cirrhosis.
== END ==
PROVIDERS: PCP Family Medicine; Visit Provider Internal Medicine Gastroenterology
DX: K74.69 Other cirrhosis of liver (principal)
CPT/HCPCS: 76705

== ENCOUNTER 2021-09-13 11:44 | Emergency (ER) | payer OTHER, SELFPAY ==
[2021-09-13 12:18] VITALS: BP 123/77; PULSE 80; RESP 17; TEMP 36.7; O2SAT 96
[2021-09-13 14:40] VITALS: BP 113/72; PULSE 74; O2SAT 97
[2021-09-13 15:30] VITALS: BP 144/78; PULSE 74; RESP 18; TEMP 36.6; O2SAT 98
[2021-09-13] MEDS: KETOROLAC (*BKC) 60 MG/2 ML VIAL IM (16:31)
--- NOTE | 2021-09-13 16:32 | ED.BACK ---
HPI - Back Pain/Injury General Chief Complaint: Back Pain/Injury Stated Complaint: Sinus infection,low back pain Time Seen by Provider: 09/13/21 15:28 Source: patient and RN notes reviewed Mode of arrival: ambulatory Limitations: no limitations History of Present Illness HPI Narrative: This is a 61 year old female with history of chronic back pain who presents for evaluation of left lower back. She has been dealing with sinus infection , and she was prescribed medications by her PCP. Last night she developed left lower buttock pain when she had a coughing attack. Her pain is worse with movement. Today she was trying to get up off toilet and her pain was worse. She has history of bulging disc and sciatica so she has had similar pain in the past. She took tylenol this morning for her pain. She has a pain specialist that she sees for injections. She denies nausae, vomiting, fever, leg weakness, numbness or tingling. Related Data Home Medications Medication Instructions Recorded Confirmed azathioprine 50 mg PO DAILY 09/08/19 06/22/21 furosemide 20 mg PO BID 09/08/19 06/22/21 pantoprazole 40 mg PO DAILY 09/08/19 06/22/21 spironolactone 150 mg PO DAILY 09/08/19 06/22/21 cyclobenzaprine 10 mg PO PRN PRN 11/30/19 06/22/21 cholecalciferol (vitamin D3) 50 2,000 unit PO DAILY 01/12/20 06/22/21 mcg (2,000 unit) tablet nadolol 40 mg tablet 40 mg PO DAILY 05/30/21 06/22/21 Allergies Allergy/AdvReac Type Severity Reaction Status Date / Time Penicillins Allergy Intermediate Rash Verified 04/13/21 16:04 Sulfa (Sulfonamide Allergy Unknown Dermatitis, Verified 04/13/21 16:04 Antibiotics) RASH TANGERINES Allergy Severe THROAT Uncoded 04/13/21 16:04 SWELLING Review of Systems Review of Systems: All systems reviewed & are unremarkable except as noted in HPI and below PMFSH Past Medical History Medical History Abdominal pain Abnormal fasting glucose Abnormal pelvic ultrasound Acute respiratory failure following trauma and surgery Advanced cirrhosis of liver Anemia labs from 07/11/2021 with hemoglobin 12.1 with iron 32 with 8% saturation and ferritin low at 8 Arrhythmia Autoimmune hepatitis BMI 45.0-49.9, adult Bulging lumbar disc Cellulitis of right knee Chronic bilateral low back pain without sciatica Chronic constipation Chronic low back pain with bilateral sciatica Chronic pain back Chronic pain of right knee Chronic thoracic back pain Degenerative arthritis of knee, bilateral DIC (disseminated intravascular coagulation) Esophageal varices Essential hypertension Folic acid deficiency GERD (gastroesophageal reflux disease) Hemoglobin A1c less than 7.0% A1c 6.2 on 09/12/20 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 Iron deficiency anemia, unspecified (07/11/21) iron low at 32 with 8% saturation and ferritin low at 8 on 07/11/2021 from GI with hemoglobin 12.1 Low magnesium level Obstructive sleep apnea Osteopenia after menopause Portal hypertension Postmenopausal bleeding Postoperative hemorrhage Respiratory acidosis Shock Surgical History Surgical History H/O dilation and curettage (~2018) H/O: hysterectomy History of breast lump/mass excision Hx of cholecystectomy S/P exploratory laparotomy Status post surgical removal of neoplasm of skin Left arm Family History Family History Father Carcinoma of colon, Onset Age: 76 Sibling Patient's sister is in good health Grandparent Family history of cardiovascular disease, Onset Age: 95 Carcinoma of colon Mother Acute myocardial infarction, Onset Age: 74 Cerebrovascular accident Social History Social History Social History: The patient has 1 child. She is to gleason who is the d
[2021-09-13 17:08] VITALS: BP 144/87; PULSE 64; RESP 16; TEMP 37.1; O2SAT 98
== END 2021-09-13 17:09 | disposition home or self-care (01) ==
PROVIDERS: Emergency Provider General Practice; PCP Family Medicine
DX: M54.16 Radiculopathy, lumbar region (principal); D64.9 Anemia, unspecified; I10 Essential (primary) hypertension; K21.9 Gastro-esophageal reflux disease without esophagitis; G89.29 Other chronic pain
CPT/HCPCS: 96372; 99283; J1885

== ENCOUNTER → 2021-09-18 09:36 | Outpatient (CLI) | payer OTHER, SELFPAY ==
--- NOTE | ~2021-09-18 | XR_ITS ---
EXAMINATION: XR sacroiliac joints min 3V DATE: 09/18/2021 10:16 INDICATION: Sacroiliac joint pain TECHNIQUE: AP and left and right oblique views of the bilateral sacroiliac joints were obtained. COMPARISON: Lumbar spine radiographs dated 11/19/2019 FINDINGS: Bone alignment is normal. No fracture or suspected avascular necrosis. Sacral arches are intact. Mild osteoarthritis at the bilateral sacroiliac joints. No erosions or subarticular sclerosis to suggest inflammatory sacroiliitis. Bilateral L5 pars and articularis defects seen on prior radiographs are no t clearly profiled on the current study. IMPRESSION: 1. Mild bilateral sacroiliac osteoarthritis. Reviewed, dictated and finalized at location B. 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
== END ==
PROVIDERS: PCP Family Medicine; Visit Provider Nurse Practitioner Family
DX: M53.3 Sacrococcygeal disorders, not elsewhere classified (principal); M47.898 Other spondylosis, sacral and sacrococcygeal region
CPT/HCPCS: 72202

== ENCOUNTER 2022-01-01 09:14 | Emergency (ER) | payer OTHER, SELFPAY ==
[2022-01-01 09:20] VITALS: BP 137/84; PULSE 78; RESP 16; TEMP 36.4; O2SAT 95
--- NOTE | 2022-01-01 09:38 | ED.WOUNDLAC ---
HPI - Wound/Laceration General Chief Complaint: Wound/Laceration Stated Complaint: L index finger injury Time Seen by Provider: 01/01/22 09:28 Source: patient Mode of arrival: ambulatory Limitations: no limitations History of Present Illness HPI narrative: 61-year-old female who is right-handed presents today with a laceration to the left second digit. Patient states she was using a herd tester knife and cutting ham when she cut her finger. Patient states she is not up-to-date on her tetanus. Patient denies any numbness. Full range of motion noted. Related Data Home Medications Medication Instructions Recorded Confirmed azathioprine 50 mg PO DAILY 09/08/19 12/20/21 furosemide 20 mg PO BID 09/08/19 12/20/21 pantoprazole 40 mg PO DAILY 09/08/19 12/20/21 spironolactone 150 mg PO DAILY 09/08/19 12/20/21 cyclobenzaprine 10 mg PO PRN PRN 11/30/19 12/20/21 cholecalciferol (vitamin D3) 50 2,000 unit PO DAILY 01/12/20 12/20/21 mcg (2,000 unit) tablet nadolol 40 mg tablet 40 mg PO DAILY 05/30/21 12/20/21 lactulose 10 gram/15 mL (15 mL) 15 ml PO DAILY 12/20/21 12/20/21 oral solution Allergies Allergy/AdvReac Type Severity Reaction Status Date / Time Penicillins Allergy Intermediate Rash Verified 01/01/22 09:34 Sulfa (Sulfonamide Allergy Unknown Dermatitis, Verified 01/01/22 09:34 Antibiotics) RASH TANGERINES Allergy Severe THROAT Uncoded 04/13/21 16:04 SWELLING Review of Systems Review of Systems: CONSTITUTIONAL: Denies fever, chills, or sweats. EYES: Denies visual changes, redness, or discharge. ENT: Denies rhinorrhea, congestion, sore throat, or otalgia. CARDIOVASCULAR: Denies chest pain, palpitations, or edema. RESPIRATORY: Denies cough or dyspnea. GASTROINTESTINAL: Denies abdominal pain, nausea, vomiting, or diarrhea. GENITOURINARY: Denies dysuria or hematuria. SKIN: Laceration to left index finger. Denies rash or itching. MUSCULOSKELETAL: Denies back pain, joint pain, or myalgia. NEUROLOGIC: Denies headache, numbness, dizziness, or weakness. PSYCHIATRIC: Denies anxiety or depression. [facility] Past Medical History Medical History Abdominal pain Abnormal fasting glucose Abnormal pelvic ultrasound Acute respiratory failure following trauma and surgery Advanced cirrhosis of liver Anemia labs from 07/11/2021 with hemoglobin 12.1 with iron 32 with 8% saturation and ferritin low at 8 Arrhythmia Autoimmune hepatitis BMI 45.0-49.9, adult Bulging lumbar disc Cellulitis of right knee Chronic bilateral low back pain without sciatica Chronic constipation Chronic low back pain with bilateral sciatica Chronic pain back Chronic pain of right knee Chronic thoracic back pain Degenerative arthritis of knee, bilateral DIC (disseminated intravascular coagulation) Esophageal varices Essential hypertension Folic acid deficiency GERD (gastroesophageal reflux disease) Hemoglobin A1c less than 7.0% A1c 6.2 on 09/12/20 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 Iron deficiency anemia, unspecified (07/11/21) iron low at 32 with 8% saturation and ferritin low at 8 on 07/11/2021 from GI with hemoglobin 12.1 Low magnesium level Obstructive sleep apnea Osteopenia after menopause Portal hypertension Postmenopausal bleeding Postoperative hemorrhage Respiratory acidosis Shock Skin neoplasm right temporal area Surgical History Surgical History H/O dilation and curettage (~2018) H/O: hysterectomy History of breast lump/mass excision Hx of cholecystectomy S/P exploratory laparotomy Status post surgical removal of neoplasm of skin Left arm Family History Family History Father Carcinoma of colon, Onset Age: 76 Sibling Patient's sister is in good health Grandparent Family history of cardiovascular disease, Onset Age: 95 Carcino
[2022-01-01] MEDS: TETANUS,DIPHTHERIA,AC PERTUSSIS ADULT (0.5 ML) BOOSTRIX IM (09:57)
[2022-01-01] MEDS: LIDOCAINE HCL 1% LOCAL INJ 20 ML VIAL 3 ML INFILTRATE (09:58)
--- NOTE | 2022-01-01 10:59 | PC.NURSE ---
Antibiotic cream applied with telfa dressing applied with finger split.
== END 2022-01-01 11:14 | disposition home or self-care (01) ==
LOC: ANHED 10:53
PROVIDERS: Emergency Provider Nurse Practitioner Family; PCP Family Medicine
DX: S61.211A Laceration without foreign body of left index finger without damage to nail, initial encounter (principal); Z23 Encounter for immunization; I10 Essential (primary) hypertension; K74.60 Unspecified cirrhosis of liver; K75.4 Autoimmune hepatitis; K21.9 Gastro-esophageal reflux disease without esophagitis; K74.3 Primary biliary cirrhosis; K76.6 Portal hypertension; D50.9 Iron deficiency anemia, unspecified; G47.33 Obstructive sleep apnea (adult) (pediatric); M17.0 Bilateral primary osteoarthritis of knee; Z85.828 Personal history of other malignant neoplasm of skin; Y93.G1 Activity, food preparation and clean up; W26.0XXA Contact with knife, initial encounter
CPT/HCPCS: 12001; 90471; 90715; 99283

== ENCOUNTER → 2022-12-17 09:35 | Outpatient (CLI) | payer OTHER, SELFPAY ==
--- NOTE | ~2022-12-17 | US_ITS ---
EXAMINATION: US abdomen limited DATE: 12/17/2022 09:52 INDICATION: Cirrhosis of the liver TECHNIQUE: Multiple grayscale and Doppler ultrasound images of limited portions of the abdomen were o btained. COMPARISON: 07/28/2021. FINDINGS: The visualized portions of the pancreas are normal. The liver is normal size with normal ec hogenicity and coarse echotexture. Mild surface nodularity. Narrow caliber portal vein with continuou s but reduced amplitude of hepatopedal flow. Surgically absent gallbladder. The common bile duct ngoc ures 4 mm. IMPRESSION: Cirrhosis. Portal venous changes may reflect the presence of portal hypertension and possible chronic thrombosis, with maintenance of reduced amplitude hepatopedal flow. Reviewed, dictated and finalized at location K. RUCTOR KNITTING IMPRESSION: Cirrhosis. Portal venous changes may reflect the presence of portal hypertensio n and possible chronic thrombosis, with maintenance of reduced amplitude hepato pedal flow.
== END ==
PROVIDERS: PCP Family Medicine; Visit Provider Internal Medicine Gastroenterology
DX: K74.69 Other cirrhosis of liver (principal)
CPT/HCPCS: 76705

== ENCOUNTER 2023-01-18 08:35 | Outpatient (CLI) | payer OTHER, SELFPAY ==
--- NOTE | ~2023-01-18 | MR_ITS ---
EXAMINATION: MR lumbar spine wo con DATE: 01/18/2023 09:16 INDICATION: Low back pain TECHNIQUE: Magnetic resonance imaging (MRI) of the lumbar spine was performed without intravenous con trast. Sequences included sagittal T2-weighted FSE, sagittal T2-weighted FS FSE, sagittal T1-weighted FSE, and axial T2-weighted FSE. COMPARISON: 05/02/2020 FINDINGS: L5 spondylolysis with bilateral pars intra-articular is defects and unchanged 2 mm anterolisthesis L5 on S1. Vertebral body heights are normal. Normal marrow signal. Moderate disc height loss at L4-L5. Mild disc height loss at L3-L4 and L5-S1. The conus medullaris terminates at L1-L2. There is normal signal in the caudal spinal cord. Paravertebral soft tissues are unremarkable. The following disc lev els are specifically discussed: T12-L1: The disc does not extend beyond the endplate margin. There is mild bilateral facet joint oste oarthritis. There is no neural foraminal stenosis. There is no central canal stenosis. L1-L2: The disc does not extend beyond the endplate margin. There is mild bilateral facet joint osteo arthritis. There is no neural foraminal stenosis. There is no central canal stenosis. L2-L3: Disc is mildly bulging. There is mild bilateral facet joint osteoarthritis. There is mild bila teral neural foraminal stenosis. There is minimal central canal stenosis. L3-L4: Disc is mildly bulging. There is mild bilateral facet joint osteoarthritis. There is mild bila teral neural foraminal stenosis. There is minimal central canal stenosis. L4-L5: Disc is mildly bulging. There is mild to moderate right and moderate left facet joint osteoart hritis. There is mild bilateral neural foraminal stenosis. There is no central canal stenosis. L5-S1: Disc is bulging. There is severe right and moderate left facet joint osteoarthritis. There is mild bilateral neural foraminal stenosis. There is no central canal stenosis. IMPRESSION: 1. No significant interval change in mild to moderate lumbar spondylosis. 2. 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 IMPRESSION: 1. No significant interval change in mild to moderate lumbar spondylosis. 2. 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
== END 2023-01-18 08:36 ==
LOC: MICIMG 08:37
PROVIDERS: PCP Family Medicine; Visit Provider Nurse Practitioner Family
DX: M47.896 Other spondylosis, lumbar region (principal)
CPT/HCPCS: 72148

== ENCOUNTER → 2023-07-12 10:29 | Outpatient (CLI) | payer OTHER, SELFPAY ==
--- NOTE | ~2023-07-12 | US_ITS ---
US abdomen limited INDICATION: Cirrhosis of the liver PROCEDURE: Realtime right upper abdominal ultrasound. COMPARISON: No prior studies for comparison. FINDINGS: The pancreas is normal without focal mass or pancreatic ductal dilation. Liver echotexture is normal without focal mass or intrahepatic biliary dilatation. There is normal directional flow i n the portal vein. Gallbladder is surgically absent. Common bile duct measures 3 mm. No sonographic Ruiz's sign. IMPRESSION: 1: Unremarkable limited abdominal ultrasound. Reviewed, dictated and finalized at location B.
== END ==
PROVIDERS: PCP Family Medicine; Visit Provider Internal Medicine Gastroenterology
DX: K74.69 Other cirrhosis of liver (principal)
CPT/HCPCS: 76705

== ENCOUNTER 2023-12-23 08:54 | Outpatient (CLI) | payer OTHER, SELFPAY ==
--- NOTE | ~2023-12-23 | US_ITS ---
Limited Abdominal Sonogram: Real-time sonographic imaging of the right upper quadrant was performed. Clinical History: Cirrhosis Findings: The liver appears mildly heterogeneous, with no evidence of mass lesion or bile duct dilat ation. Main portal vein demonstrates normal direction of flow. The gallbladder is absent, compatible prior cholecystectomy. The common bile duct measures 9 mm. The visualized pancreas, aorta, and IVC a re unremarkable. Right kidney measures 10 cm in length, without hydronephrosis. Impression: Heterogeneous hepatic echotexture could reflect fatty infiltration or other chronic liver disease. Co rrelate clinically. Mildly dilated common bile duct may related to prior cholecystectomy. Reviewed, dictated and finalized at location . Impression: Heterogeneous hepatic echotexture could reflect fatty infiltration or other chr onic liver disease. Correlate clinically. Mildly dilated common bile duct may related to prior cholecystectomy.
== END 2023-12-23 08:55 ==
LOC: MICIMG 08:55
PROVIDERS: PCP Internal Medicine Gastroenterology; Visit Provider Internal Medicine Gastroenterology
DX: K74.69 Other cirrhosis of liver (principal); K75.4 Autoimmune hepatitis
CPT/HCPCS: 76705

== ENCOUNTER 2024-07-23 09:19 | Outpatient (CLI) | payer OTHER, SELFPAY ==
--- NOTE | ~2024-07-23 | US_ITS ---
Limited Abdominal Sonogram: Real-time sonographic imaging of the right upper quadrant was performed. Clinical History: Cirrhosis, autoimmune hepatitis Findings: The liver appears mildly heterogeneous, with no evidence of mass lesion or bile duct dilat ation. Nodular contour noted. Main portal vein demonstrates normal direction of flow. The gallbladder is absent, compatible prior cholecystectomy. The common bile duct measures 8 mm. The visualized prado creas, aorta, and IVC are unremarkable. Impression: . Heterogeneous hepatic echotexture and nodular contour are compatible with cirrhotic change of the l iver. Status post cholecystectomy. Reviewed, dictated and finalized at location . Impression: . Heterogeneous hepatic echotexture and nodular contour are compatible with cir rhotic change of the liver. Status post cholecystectomy.
== END 2024-07-23 09:20 | disposition home or self-care (01) ==
LOC: ANHIMG 09:22
PROVIDERS: PCP Family Medicine; Visit Provider Internal Medicine Gastroenterology
DX: K75.4 Autoimmune hepatitis (principal); Z90.49 Acquired absence of other specified parts of digestive tract
CPT/HCPCS: 76705

== ENCOUNTER 2024-11-12 13:11 | Outpatient (CLI) | payer OTHER, SELFPAY ==
--- NOTE | ~2024-11-12 | XR_ITS ---
[id number] 11/12/2024 13:26 Indication: Bilateral knee pain Procedure: 2 views left knee Comparison: No prior studies for comparison. Findings: Osteopenia. Mild osteoarthritis. No fracture or traumatic malalignment. No significant join t effusion. No foreign bodies. Impression: 1: Mild tricompartment osteoarthritis. 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 [employer] Impression: 1: Mild tricompartment osteoarthritis.
--- NOTE | ~2024-11-12 | XR_ITS ---
[id number] 11/12/2024 13:26 Indication: Bilateral knee pain Procedure: 2 views right knee Comparison: No prior studies for comparison. Findings: Mild tricompartment osteoarthritis. No fracture or traumatic malalignment. Osteopenia. No s ignificant joint effusion. No foreign bodies. Impression: 1: Mild tricompartment osteoarthritis. 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
== END 2024-11-12 13:12 | disposition home or self-care (01) ==
LOC: MICIMG 13:13
PROVIDERS: PCP Family Medicine; Visit Provider Nurse Practitioner Family
DX: M17.0 Bilateral primary osteoarthritis of knee (principal)
CPT/HCPCS: 73560

== ENCOUNTER 2025-02-26 10:05 | Outpatient (CLI) | payer OTHER, SELFPAY ==
--- NOTE | ~2025-02-26 | US_ITS ---
Limited Abdominal Sonogram: Real-time sonographic imaging of the right upper quadrant was performed. Clinical History: Cirrhosis Findings: The liver appears heterogeneous in echotexture, with no evidence of mass lesion or bile du ct dilatation. Main portal vein demonstrates normal direction of flow. The gallbladder is absent, com patible prior cholecystectomy. The common bile duct measures 6 mm. The visualized pancreas, aorta, a nd IVC are unremarkable. Impression: Heterogeneous hepatic echotexture could reflect fatty infiltration or other chronic liver disease. Co rrelate clinically. Reviewed, dictated and finalized at location . Impression: Heterogeneous hepatic echotexture could reflect fatty infiltration or other chr onic liver disease. Correlate clinically.
== END 2025-02-26 10:06 | disposition home or self-care (01) ==
LOC: MICIMG 10:06
PROVIDERS: PCP Family Medicine; Visit Provider Internal Medicine Gastroenterology
DX: K74.69 Other cirrhosis of liver (principal)
CPT/HCPCS: 76705

== ENCOUNTER 2025-07-09 13:57 | Outpatient (CLI) | payer MEDICARE, SELFPAY ==
--- NOTE | ~2025-07-09 | US_ITS ---
ULTRASOUND ABDOMEN LIMITED (RIGHT UPPER QUADRANT) Clinical History: Cirrhosis Comparison: Ultrasound 02/26/2025 Technique: Right upper quadrant sonography Findings: Liver: Minimal surface nodularity. Normal size. Coarse echotexture. No intrahepatic biliary ductal dilatation. Normal hepatopedal flow main portal vein. Common Duct: 7 mm. Gallbladder: Removed. Pancreas: Unremarkable. Right kidney: Unremarkable. Retrohepatic IVC: Unremarkable. IMPRESSION: 1. No acute findings or significant change. 2. Hepatic steatosis and/or diffuse hepatocellular disease, with probable cirrhosis. Reviewed, dictated and finalized at location R. IMPRESSION: 1. No acute findings or significant change. 2. Hepatic steatosis and/or diffuse hepatocellular disease, with probable cirr hosis.
== END 2025-07-09 13:58 | disposition home or self-care (01) ==
LOC: MICIMG 13:59
PROVIDERS: Visit Provider Internal Medicine Gastroenterology
DX: K74.69 Other cirrhosis of liver (principal)
CPT/HCPCS: 76705